=== PATIENT | male | born 1965 | race African-American/Black ===

== ENCOUNTER 2016-12-12 10:05 | Inpatient (IN) | payer MEDICARE, MEDICAID ==
[~2016-12-12] VITALS: Ht 175.3 cm; Wt 89.1 kg
[~2016-12-12 10:05] MED LIST: CLOP75 PO; FERR-89 PO; FLUP10 PO; LISI10TA PO; METO50 PO; PALI9TAB PO; QUET400T PO
[2016-12-15 15:41] VITALS: BP 97/65
[2016-12-15] MEDS ORDERED: ZOLPIDEM TARTRATE 10 MG TABLET PO PRN (15:45)
[2016-12-15] MEDS ORDERED: HALOPERIDOL 5 MG TABLET PO PRN (15:45)
[2016-12-15] MEDS ORDERED: LORazepam 2 MG TABLET PO PRN (15:45)
[2016-12-15] MEDS ORDERED: INFLUENZA VIRUS VACCINE QVS 2016-17 (3YR+)/PF 60 MCG/0.5 ML SYRINGE IM ONE (16:00)
[2016-12-15 16:08] VITALS: BP 153/78
[2016-12-15] MEDS ORDERED: ROSU10 PO (16:24)
[2016-12-15] MEDS ORDERED: LOSA50TA37 PO (16:24)
[2016-12-15] MEDS ORDERED: AMLO-512 PO (16:24)
[2016-12-15] MEDS ORDERED: MIRT30 PO (16:24)
[2016-12-15] MEDS ORDERED: DIVA500T35 PO ×2 (16:24)
[2016-12-15] MEDS ORDERED: FOLI1 PO (16:24)
[2016-12-15] MEDS ORDERED: CLON.2 PO (16:24)
[2016-12-15] MEDS ORDERED: METO50 PO (16:24)
[2016-12-15] MEDS ORDERED: ASPI-1061 PO (16:24)
[2016-12-15] MEDS ORDERED: PNEUMOCOCCAL VACCINE POLYVALENT 0.5 ML VIAL [PPSV23] IM ONE (16:30)
[2016-12-16 06:54] VITALS: BP 106/66
[2016-12-16] MEDS ORDERED: LOPERAMIDE HCL 2 MG CAPSULE PO PRN (08:15)
[2016-12-16] MEDS ORDERED: ALBUTEROL SULFATE HFA 90 MCG/PUFF 8 GM INHALER IH PRN (08:15)
[2016-12-16] MEDS ORDERED: BACITRACIN 28.4 GM OINTMENT TP PRN (08:15)
[2016-12-16] MEDS ORDERED: CloNIDine HCL 0.1 MG TABLET PO PRN (08:15)
[2016-12-16] MEDS ORDERED: BENZOCAINE/MENTHOL LOZENGE MM PRN (08:15)
[2016-12-16] MEDS ORDERED: ONDANSETRON HCL 4 MG TABLET PO PRN (08:15)
[2016-12-16] MEDS ORDERED: MAGNESIUM HYDROXIDE SUSPENSION 30 ML UDCUP PO PRN (08:15)
[2016-12-16] MEDS ORDERED: MAG HYDROX/AL HYDROX/SIMETH ES 30 ML SUSPENSION UDCUP PO PRN (08:15)
[2016-12-16] MEDS ORDERED: IBUPROFEN 600 MG TABLET PO PRN (08:15)
[2016-12-16] MEDS ORDERED: ACETAMINOPHEN 325 MG TABLET PO PRN (08:15)
[2016-12-16] MEDS ORDERED: PETROLATUM,WHITE 71 GM JELLY TP PRN (08:15)
[2016-12-16 08:34] LABS: BASOPHILS % (AUTO) 0.4 % (0.0-2.0); EOSINOPHILS % (AUTO) 1.2 % (1.0-6.0); HEMATOCRIT 34.6 % (41-53); HEMOGLOBIN 11.1 g/dL (13.5-17.5); LYMPHOCYTES # (AUTO) 4.1 K/uL (1.0-4.8); LYMPHOCYTES % (AUTO) 45.8 % (22.0-44.0); MEAN CORPUSCULAR HEMOGLOBIN 25.3 pg (26.0-34.0); MEAN CORPUSCULAR HGB CONC 32.1 G/dL (31.0-37.0); MEAN CORPUSCULAR VOLUME 79 fL (80-100); MONOCYTES # (AUTO) 0.8 K/uL (0.1-1.0); MONOCYTES % (AUTO) 8.8 % (2.0-9.0); NEUTROPHILS # (AUTO) 3.9 K/uL (1.8-7.7); NEUTROPHILS % (AUTO) 43.8 % (40.0-70.0); PLATELET COUNT (AUTO) 189 K/uL (150-450); RED BLOOD CELL COUNT(AUTO) 4.38 MIL/uL (4.50-5.90); RED CELL DISTRIBUTION WIDTH 15.1 % (11.5-14.5)
[2016-12-16 08:48] LABS: ALBUMIN 3.9 g/dL (3.4-5.0); BILIRUBIN,TOTAL 0.4 mg/dL (0.1-1.0); CALCIUM, TOTAL 9.1 mg/dL (8.8-10.5); CREATININE 4.67 mg/dL (0.60-1.30); POTASSIUM 4.7 mmol/L (3.5-5.1)
[2016-12-16 08:52] VITALS: BP 98/62
[2016-12-16] MEDS ORDERED: METOPROLOL TARTRATE 50 MG TABLET PO SCH ×2 (09:00)
[2016-12-16] MEDS ORDERED: FOLIC ACID 1 MG TABLET PO SCH (09:00)
[2016-12-16] MEDS ORDERED: CloNIDine HCL 0.2 MG TABLET PO SCH (09:00)
[2016-12-16] MEDS ORDERED: ASPIRIN 81 MG CHEWABLE TABLET PO SCH (09:00)
[2016-12-16] MEDS ORDERED: ROSUVASTATIN CALCIUM 10 MG TABLET PO SCH (09:00)
[2016-12-16] MEDS ORDERED: LOSARTAN POTASSIUM 50 MG TABLET PO SCH (09:00)
[2016-12-16] MEDS ORDERED: AmLODIPine BESYLATE 10 MG TABLET PO SCH (09:00)
[2016-12-16] MEDS: METOPROLOL TARTRATE 25 MG TABLET PO SCH ×2 (09:09→17:00)
== END 2016-12-16 18:00 | disposition short-term general hospital (02) | DRG 885 ==
LOC: EEVIPCON 12-15 15:41 → B3A 12-15 15:41
PROVIDERS: ADMIT Psychiatry & Neurology Psychiatry; ATTEND Psychiatry & Neurology Psychiatry
DX: F20.0 Paranoid schizophrenia (principal); N17.9 Acute kidney failure, unspecified; I12.9 Hypertensive chronic kidney disease with stage 1 through stage 4 chronic kidney disease, or unspecified chronic kidney disease; J44.9 Chronic obstructive pulmonary disease, unspecified; K21.9 Gastro-esophageal reflux disease without esophagitis; N18.9 Chronic kidney disease, unspecified; E78.5 Hyperlipidemia, unspecified; F17.210 Nicotine dependence, cigarettes, uncomplicated; Z71.6 Tobacco abuse counseling; Z79.51 Long term (current) use of inhaled steroids; Z79.899 Other long term (current) drug therapy; Z28.21 Immunization not carried out because of patient refusal

== ENCOUNTER 2016-12-16 10:31 | Inpatient (IN) | payer MEDICARE, OTHER ==
[~2016-12-16] VITALS: Ht 175.3 cm; Wt 88.4 kg
[~2016-12-16 10:31] MED LIST changes: +AMLO-512 PO; +ASPI-1061 PO; +CLON.2 PO; -CLOP75 PO; +DIVA500T35 PO; -FERR-89 PO; -FLUP10 PO; +FOLI1 PO; -LISI10TA PO; +LOSA50TA37 PO; +MIRT30 PO; -PALI9TAB PO; -QUET400T PO; +ROSU10 PO
[2016-12-16 11:39] LABS: BASOPHILS # (AUTO) 0.04 K/uL (0.00-0.20); BASOPHILS % (AUTO) 0.4 % (0.0-2.0); EOSINOPHILS # (AUTO) 0.09 K/uL (0.00-0.70); EOSINOPHILS % (AUTO) 0.97 % (1.0-6.0); HEMATOCRIT 34.4 % (41-53); HEMOGLOBIN 11.1 g/dL (13.5-17.5); LYMPHOCYTES # (AUTO) 3.6 K/uL (1.0-4.8); LYMPHOCYTES % (AUTO) 39.9 % (22.0-44.0); MEAN CORPUSCULAR HEMOGLOBIN 25.1 pg (26.0-34.0); MEAN CORPUSCULAR HGB CONC 32.3 G/dL (31.0-37.0); MEAN CORPUSCULAR VOLUME 78 fL (80-100); MONOCYTES # (AUTO) 0.8 K/uL (0.1-1.0); MONOCYTES % (AUTO) 9.3 % (2.0-9.0); NEUTROPHILS # (AUTO) 4.5 K/uL (1.8-7.7); NEUTROPHILS % (AUTO) 49.5 % (40.0-70.0); PLATELET COUNT (AUTO) 185 K/uL (150-450); RED BLOOD CELL COUNT(AUTO) 4.43 MIL/uL (4.50-5.90); RED CELL DISTRIBUTION WIDTH 15.3 % (11.5-14.5); WHITE BLOOD COUNT (AUTO) 9.1 K/uL (4.5-11.0)
[2016-12-16 11:49] LABS: CALCIUM, TOTAL 9.3 mg/dL (8.8-10.5); CREATININE 4.69 mg/dL (0.60-1.30); POTASSIUM 5.2 mmol/L (3.5-5.1)
[2016-12-16 11:57] LABS: ALBUMIN 3.9 g/dL (3.4-5.0); BILIRUBIN,TOTAL 0.3 mg/dL (0.1-1.0); TOTAL PROTEIN, SERUM 8.4 g/dL (6.4-8.2)
[2016-12-16] MEDS ORDERED: SODIUM POLYSTYRENE SULFONATE 15 GM/60 ML SUSPENSION BOTTLE PO ONE (13:15)
[2016-12-16] MEDS ORDERED: SODIUM CHLORIDE 0.9% 1,000 ML IV ONE (14:00)
[2016-12-16] MEDS ORDERED: 0.9% SODIUM CHLORIDE 10 ML SYRINGE IVP PRN (14:00)
[2016-12-16] MEDS ORDERED: ACETAMINOPHEN 325 MG TABLET PO PRN (14:00)
[2016-12-16 18:44] VITALS: BP 140/85
[2016-12-16 19:37] VITALS: BP 129/84
[2016-12-17 00:01] VITALS: BP 127/73
[2016-12-17 04:15] VITALS: BP 146/89
[2016-12-17 07:51] VITALS: BP 144/98
[2016-12-17 08:01] LABS: BASOPHILS % (AUTO) 0.7 % (0.0-2.0); EOSINOPHILS % (AUTO) 0.4 % (1.0-6.0); HEMATOCRIT 34.4 % (41-53); HEMOGLOBIN 10.8 g/dL (13.5-17.5); LYMPHOCYTES # (AUTO) 2.5 K/uL (1.0-4.8); LYMPHOCYTES % (AUTO) 27.3 % (22.0-44.0); MEAN CORPUSCULAR HGB CONC 31.2 G/dL (31.0-37.0); MEAN CORPUSCULAR VOLUME 80 fL (80-100); MONOCYTES # (AUTO) 0.7 K/uL (0.1-1.0); MONOCYTES % (AUTO) 8.2 % (2.0-9.0); NEUTROPHILS # (AUTO) 5.8 K/uL (1.8-7.7); NEUTROPHILS % (AUTO) 63.4 % (40.0-70.0); PLATELET COUNT (AUTO) 190 K/uL (150-450); RED CELL DISTRIBUTION WIDTH 15.4 % (11.5-14.5); WHITE BLOOD COUNT (AUTO) 9.1 K/uL (4.5-11.0)
[2016-12-17 08:15] LABS: BILIRUBIN,TOTAL 0.4 mg/dL (0.1-1.0); CALCIUM, TOTAL 9.7 mg/dL (8.8-10.5); CREATININE 3.27 mg/dL (0.60-1.30); POTASSIUM 4.2 mmol/L (3.5-5.1); TOTAL PROTEIN, SERUM 8.9 g/dL (6.4-8.2)
[2016-12-17] MEDS: ROSUVASTATIN CALCIUM 10 MG TABLET PO SCH (09:22)
[2016-12-17] MEDS: SODIUM CHLORIDE 0.9% 1,000 ML IV SCH ×2 (09:22→18:45)
[2016-12-17] MEDS: FOLIC ACID 1 MG TABLET PO SCH (09:22)
[2016-12-17] MEDS: ASPIRIN 81 MG EC TABLET PO SCH (09:22)
[2016-12-17] MEDS: NICOTINE 21 MG/24 HOUR PATCH TD SCH (12:30)
[2016-12-17] MEDS: DIVALPROEX SODIUM 500 MG DR TABLET PO SCH ×2 (12:54→20:04)
[2016-12-17] MEDS ORDERED: IPRATROPIUM BROMIDE 0.5 MG/2.5 ML NEB SOLUTION NEB PRN (13:30)
[2016-12-17] MEDS ORDERED: BISACODYL 10 MG RECTAL RECTAL SUPPOSITORY PR PRN (13:30)
[2016-12-17] MEDS ORDERED: ACETAMINOPHEN 325 MG TABLET PO PRN (13:30)
[2016-12-17] MEDS ORDERED: ZOLPIDEM TARTRATE 5 MG TABLET PO PRN (13:30)
[2016-12-17] MEDS ORDERED: MAGNESIUM HYDROXIDE SUSPENSION 30 ML UDCUP PO PRN (13:30)
[2016-12-17] MEDS ORDERED: ALBUTEROL SULFATE 2.5 MG/0.5 ML NEB SOLUTION NEB PRN (13:30)
[2016-12-17 19:08] VITALS: BP 136/74
[2016-12-17] MEDS: HEPARIN SODIUM,PORCINE 5,000 UNITS/ML VIAL SQ SCH (20:05)
[2016-12-17] MEDS ORDERED: MIRTAZAPINE 30 MG TABLET PO SCH (21:00)
[2016-12-17 23:33] VITALS: BP 123/95
[2016-12-18 04:29] VITALS: BP 151/97
[2016-12-18] MEDS: SODIUM CHLORIDE 0.9% 1,000 ML IV SCH ×2 (04:45→14:45)
[2016-12-18 06:20] LABS: BASOPHILS % (AUTO) 0.3 % (0.0-2.0); EOSINOPHILS % (AUTO) 0.9 % (1.0-6.0); HEMATOCRIT 31.2 % (41-53); HEMOGLOBIN 9.7 g/dL (13.5-17.5); LYMPHOCYTES # (AUTO) 4.3 K/uL (1.0-4.8); LYMPHOCYTES % (AUTO) 42.2 % (22.0-44.0); MEAN CORPUSCULAR HEMOGLOBIN 24.8 pg (26.0-34.0); MEAN CORPUSCULAR HGB CONC 31.1 G/dL (31.0-37.0); MEAN CORPUSCULAR VOLUME 80 fL (80-100); MONOCYTES # (AUTO) 0.8 K/uL (0.1-1.0); MONOCYTES % (AUTO) 8.4 % (2.0-9.0); NEUTROPHILS # (AUTO) 4.9 K/uL (1.8-7.7); NEUTROPHILS % (AUTO) 48.2 % (40.0-70.0); PLATELET COUNT (AUTO) 151 K/uL (150-450); RED BLOOD CELL COUNT(AUTO) 3.92 MIL/uL (4.50-5.90); RED CELL DISTRIBUTION WIDTH 14.9 % (11.5-14.5)
[2016-12-18 06:43] LABS: ALBUMIN 3.5 g/dL (3.4-5.0); BILIRUBIN,TOTAL 0.3 mg/dL (0.1-1.0); CALCIUM, TOTAL 9.2 mg/dL (8.8-10.5); CHOL/HDL RATIO 3.5 (4.2-7.3); CREATININE 2.77 mg/dL (0.60-1.30); MAGNESIUM 2.1 mg/dL (1.80-2.40); PHOSPHORUS 3.5 mg/dL (2.5-4.9); POTASSIUM 3.9 mmol/L (3.5-5.1); THYROID STIMULATING HORMONE 0.56 uIU/mL (0.36-3.74); TOTAL PROTEIN, SERUM 7.6 g/dL (6.4-8.2)
[2016-12-18 07:14] LABS: WHITE BLOOD COUNT (AUTO) 11.3 K/uL (4.5-11.0)
[2016-12-18] MEDS: ROSUVASTATIN CALCIUM 10 MG TABLET PO SCH (07:58)
[2016-12-18] MEDS: ASPIRIN 81 MG EC TABLET PO SCH (07:58)
[2016-12-18] MEDS: NICOTINE 21 MG/24 HOUR PATCH TD SCH (07:59)
[2016-12-18] MEDS: FOLIC ACID 1 MG TABLET PO SCH (07:59)
[2016-12-18] MEDS: HEPARIN SODIUM,PORCINE 5,000 UNITS/ML VIAL SQ SCH (07:59)
[2016-12-18] MEDS ORDERED: NICOTINE 21 MG/24 HOUR PATCH TD SCH (09:00)
[2016-12-18] MEDS: DIVALPROEX SODIUM 500 MG DR TABLET PO SCH (09:00)
[2016-12-18] MEDS ORDERED: DiphenhydrAMINE HCL 50 MG/ML VIAL IM ONE (15:30)
[2016-12-18] MEDS ORDERED: LORazepam 2 MG/ML VIAL IM ONE (15:30)
[2016-12-18] MEDS ORDERED: HALOPERIDOL LACTATE 5 MG/ML VIAL IM ONE (15:30)
[2016-12-18] MEDS ORDERED: DIVALPROEX SODIUM 500 MG DR TABLET PO SCH (21:00)
[2016-12-18] MEDS ORDERED: CloNIDine HCL 0.2 MG TABLET PO SCH (21:00)
[2016-12-18] MEDS ORDERED: METOPROLOL TARTRATE 50 MG TABLET PO SCH (21:00)
[2016-12-19] MEDS ORDERED: AmLODIPine BESYLATE 10 MG TABLET PO SCH (09:00)
[2016-12-19] MEDS ORDERED: LOSARTAN POTASSIUM 50 MG TABLET PO SCH (09:00)
[2016-12-19 14:16] LABS: HEPATITIS Bs ANTIGEN SCREEN P Negative (Negative); HEPATITIS C AB SCREEN <0.1 s/co ratio (0.0-0.9)
== END 2016-12-18 18:05 | DRG 683 ==
LOC: EMS 10:32 → 5N 17:09
PROVIDERS: ADMIT Internal Medicine; ATTEND Internal Medicine
DX: N17.9 Acute kidney failure, unspecified (principal); F20.0 Paranoid schizophrenia; F17.213 Nicotine dependence, cigarettes, with withdrawal; E87.5 Hyperkalemia; N12 Tubulo-interstitial nephritis, not specified as acute or chronic; I12.9 Hypertensive chronic kidney disease with stage 1 through stage 4 chronic kidney disease, or unspecified chronic kidney disease; N18.9 Chronic kidney disease, unspecified; D64.9 Anemia, unspecified; K21.9 Gastro-esophageal reflux disease without esophagitis; J44.9 Chronic obstructive pulmonary disease, unspecified; F39 Unspecified mood [affective] disorder; F31.9 Bipolar disorder, unspecified; Z79.82 Long term (current) use of aspirin; Z79.899 Other long term (current) drug therapy
CPT/HCPCS: 80074; 82306; 83735; 83970; 84100; 84443; 93005; 96360; 99285; J1200; J1630; J1644; J2060; J7030

== ENCOUNTER 2016-12-18 16:59 | Inpatient (IN) | payer MEDICARE, MEDICAID ==
[~2016-12-18] VITALS: Ht 172.7 cm; Wt 84.4 kg
[2016-12-18 18:58] VITALS: BP 136/85
[2016-12-18] MEDS ORDERED: INFLUENZA VIRUS VACCINE QVS 2016-17 (3YR+)/PF 60 MCG/0.5 ML SYRINGE IM ONE (19:00)
[2016-12-18] MEDS ORDERED: ZOLPIDEM TARTRATE 10 MG TABLET PO PRN (19:00)
[2016-12-18] MEDS ORDERED: PNEUMOCOCCAL VACCINE POLYVALENT 0.5 ML VIAL [PPSV23] IM ONE (19:00)
[2016-12-18] MEDS ORDERED: HALOPERIDOL 5 MG TABLET PO PRN (19:00)
[2016-12-18] MEDS: LORazepam 2 MG TABLET PO PRN (21:15)
[2016-12-18] MEDS: DIVALPROEX SODIUM 500 MG DR TABLET PO SCH (21:15)
[2016-12-19 06:49] VITALS: BP 103/71
[2016-12-19] MEDS ORDERED: IBUPROFEN 600 MG TABLET PO PRN (08:00)
[2016-12-19] MEDS ORDERED: CloNIDine HCL 0.1 MG TABLET PO PRN (08:00)
[2016-12-19] MEDS ORDERED: LOPERAMIDE HCL 2 MG CAPSULE PO PRN (08:00)
[2016-12-19] MEDS ORDERED: ALBUTEROL SULFATE HFA 90 MCG/PUFF 8 GM INHALER IH PRN (08:00)
[2016-12-19] MEDS ORDERED: MAGNESIUM HYDROXIDE SUSPENSION 30 ML UDCUP PO PRN (08:00)
[2016-12-19] MEDS ORDERED: PETROLATUM,WHITE 71 GM JELLY TP PRN (08:00)
[2016-12-19] MEDS ORDERED: BENZOCAINE/MENTHOL LOZENGE MM PRN (08:00)
[2016-12-19] MEDS ORDERED: MAG HYDROX/AL HYDROX/SIMETH ES 30 ML SUSPENSION UDCUP PO PRN (08:00)
[2016-12-19] MEDS ORDERED: BACITRACIN 28.4 GM OINTMENT TP PRN (08:00)
[2016-12-19] MEDS ORDERED: ACETAMINOPHEN 325 MG TABLET PO PRN (08:00)
[2016-12-19] MEDS ORDERED: ONDANSETRON HCL 4 MG TABLET PO PRN (08:00)
[2016-12-19] MEDS: CHOLECALCIFEROL (VIT D3) 1,000 UNITS TABLET PO SCH (08:08)
[2016-12-19] MEDS: DIVALPROEX SODIUM 500 MG DR TABLET PO SCH ×3 (08:09→21:14)
[2016-12-19] MEDS: RisperiDONE 3 MG TABLET PO SCH ×2 (08:11→16:48)
[2016-12-19 08:34] VITALS: BP 136/83
[2016-12-19 16:00] VITALS: BP 116/76
[2016-12-19] MEDS: SEVELAMER CARBONATE 800 MG TABLET PO SCH (16:48)
[2016-12-19 20:00] VITALS: BP 123/80
[2016-12-19] MEDS ORDERED: METOPROLOL TARTRATE 25 MG TABLET PO ONE (21:00)
[2016-12-19] MEDS: METOPROLOL TARTRATE 50 MG TABLET PO SCH (21:15)
[2016-12-19 21:51] VITALS: BP 112/64
[2016-12-20 05:38] VITALS: BP 125/95
[2016-12-20] MEDS: SEVELAMER CARBONATE 800 MG TABLET PO SCH ×2 (06:33→17:10)
[2016-12-20 08:07] VITALS: BP 104/68
[2016-12-20 08:23] LABS: BASOPHILS # (AUTO) 0.04 K/uL (0.00-0.20); BASOPHILS % (AUTO) 0.4 % (0.0-2.0); EOSINOPHILS # (AUTO) 0.11 K/uL (0.00-0.70); EOSINOPHILS % (AUTO) 1.23 % (1.0-6.0); HEMATOCRIT 31.4 % (41-53); HEMOGLOBIN 10.1 g/dL (13.5-17.5); LYMPHOCYTES # (AUTO) 3.7 K/uL (1.0-4.8); LYMPHOCYTES % (AUTO) 41.1 % (22.0-44.0); MEAN CORPUSCULAR HEMOGLOBIN 25.2 pg (26.0-34.0); MEAN CORPUSCULAR HGB CONC 32.2 G/dL (31.0-37.0); MEAN CORPUSCULAR VOLUME 78 fL (80-100); MONOCYTES # (AUTO) 0.6 K/uL (0.1-1.0); MONOCYTES % (AUTO) 6.1 % (2.0-9.0); NEUTROPHILS # (AUTO) 4.6 K/uL (1.8-7.7); NEUTROPHILS % (AUTO) 51.1 % (40.0-70.0); PLATELET COUNT (AUTO) 204 K/uL (150-450); RED BLOOD CELL COUNT(AUTO) 4.01 MIL/uL (4.50-5.90); RED CELL DISTRIBUTION WIDTH 15.9 % (11.5-14.5); WHITE BLOOD COUNT (AUTO) 9.1 K/uL (4.5-11.0)
[2016-12-20 08:52] LABS: ALBUMIN 3.5 g/dL (3.4-5.0); BILIRUBIN,TOTAL 0.3 mg/dL (0.1-1.0); CALCIUM, TOTAL 9.4 mg/dL (8.8-10.5); CREATININE 3.05 mg/dL (0.60-1.30); MAGNESIUM 2.1 mg/dL (1.80-2.40); PHOSPHORUS 3.9 mg/dL (2.5-4.9); POTASSIUM 4.6 mmol/L (3.5-5.1); TOTAL PROTEIN, SERUM 7.4 g/dL (6.4-8.2)
[2016-12-20] MEDS: METOPROLOL TARTRATE 50 MG TABLET PO SCH ×2 (09:48→17:11)
[2016-12-20] MEDS: RisperiDONE 3 MG TABLET PO SCH ×2 (09:48→17:11)
[2016-12-20] MEDS: DIVALPROEX SODIUM 500 MG DR TABLET PO SCH ×3 (09:48→20:52)
[2016-12-20] MEDS: VITAMIN B COMP/VIT C/FOLIC ACID CAPSULE PO SCH (09:49)
[2016-12-20] MEDS: LORazepam 2 MG TABLET PO PRN ×2 (09:49→17:11)
[2016-12-20] MEDS: CHOLECALCIFEROL (VIT D3) 1,000 UNITS TABLET PO SCH (09:49)
[2016-12-20 17:09] VITALS: BP 133/85
[2016-12-21] MEDS: SEVELAMER CARBONATE 800 MG TABLET PO SCH ×2 (06:43→16:14)
[2016-12-21 06:46] VITALS: BP 113/72
[2016-12-21 08:20] VITALS: BP 128/84
[2016-12-21] MEDS: CHOLECALCIFEROL (VIT D3) 1,000 UNITS TABLET PO SCH (10:02)
[2016-12-21] MEDS: METOPROLOL TARTRATE 50 MG TABLET PO SCH ×2 (10:02→16:14)
[2016-12-21] MEDS: DIVALPROEX SODIUM 500 MG DR TABLET PO SCH ×3 (10:02→21:07)
[2016-12-21] MEDS: VITAMIN B COMP/VIT C/FOLIC ACID CAPSULE PO SCH (10:02)
[2016-12-21] MEDS: RisperiDONE 3 MG TABLET PO SCH ×2 (10:02→16:14)
[2016-12-21] MEDS: LORazepam 2 MG TABLET PO PRN ×2 (10:02→16:14)
[2016-12-21 16:22] VITALS: BP 124/88
[2016-12-22 06:12] VITALS: BP 122/84
[2016-12-22] MEDS: SEVELAMER CARBONATE 800 MG TABLET PO SCH ×2 (06:37→16:15)
[2016-12-22 08:07] VITALS: BP 122/79
[2016-12-22] MEDS: CHOLECALCIFEROL (VIT D3) 1,000 UNITS TABLET PO SCH (09:07)
[2016-12-22] MEDS: METOPROLOL TARTRATE 50 MG TABLET PO SCH ×2 (09:07→16:15)
[2016-12-22] MEDS: RisperiDONE 3 MG TABLET PO SCH ×2 (09:07→16:15)
[2016-12-22] MEDS: VITAMIN B COMP/VIT C/FOLIC ACID CAPSULE PO SCH (09:07)
[2016-12-22] MEDS: DIVALPROEX SODIUM 500 MG DR TABLET PO SCH ×3 (09:07→20:17)
[2016-12-22] MEDS: LORazepam 2 MG TABLET PO PRN (16:15)
[2016-12-22 16:25] VITALS: BP 128/83
[2016-12-23 06:30] VITALS: BP 121/81
[2016-12-23] MEDS: SEVELAMER CARBONATE 800 MG TABLET PO SCH ×2 (06:42→16:11)
[2016-12-23 07:03] VITALS: BP 125/78
[2016-12-23 08:09] VITALS: BP 115/77
[2016-12-23] MEDS: DIVALPROEX SODIUM 500 MG DR TABLET PO SCH ×3 (08:25→20:18)
[2016-12-23] MEDS: VITAMIN B COMP/VIT C/FOLIC ACID CAPSULE PO SCH (08:26)
[2016-12-23] MEDS: CHOLECALCIFEROL (VIT D3) 1,000 UNITS TABLET PO SCH (08:26)
[2016-12-23] MEDS: METOPROLOL TARTRATE 50 MG TABLET PO SCH ×2 (08:26→16:12)
[2016-12-23] MEDS: RisperiDONE 3 MG TABLET PO SCH ×2 (08:29→16:11)
[2016-12-23 16:00] VITALS: BP 118/83
[2016-12-24 06:39] VITALS: BP 116/86
[2016-12-24] MEDS: SEVELAMER CARBONATE 800 MG TABLET PO SCH ×2 (07:20→17:07)
[2016-12-24] MEDS: VITAMIN B COMP/VIT C/FOLIC ACID CAPSULE PO SCH (08:20)
[2016-12-24] MEDS: DIVALPROEX SODIUM 500 MG DR TABLET PO SCH ×3 (08:20→20:36)
[2016-12-24] MEDS: RisperiDONE 3 MG TABLET PO SCH ×2 (08:20→17:07)
[2016-12-24] MEDS: CHOLECALCIFEROL (VIT D3) 1,000 UNITS TABLET PO SCH (08:20)
[2016-12-24] MEDS: METOPROLOL TARTRATE 50 MG TABLET PO SCH ×2 (08:20→17:07)
[2016-12-24 08:33] VITALS: BP 135/86
[2016-12-24 16:00] VITALS: BP 141/103
[2016-12-24 18:22] VITALS: BP 125/67
[2016-12-25 06:39] VITALS: BP 129/76
[2016-12-25] MEDS: SEVELAMER CARBONATE 800 MG TABLET PO SCH ×2 (06:40→16:27)
[2016-12-25] MEDS: CHOLECALCIFEROL (VIT D3) 1,000 UNITS TABLET PO SCH (08:18)
[2016-12-25] MEDS: VITAMIN B COMP/VIT C/FOLIC ACID CAPSULE PO SCH (08:18)
[2016-12-25] MEDS: METOPROLOL TARTRATE 50 MG TABLET PO SCH ×2 (08:18→16:27)
[2016-12-25] MEDS: RisperiDONE 3 MG TABLET PO SCH ×2 (08:18→16:27)
[2016-12-25] MEDS: DIVALPROEX SODIUM 500 MG DR TABLET PO SCH ×3 (08:19→20:16)
[2016-12-25 08:35] VITALS: BP 126/79
[2016-12-25 16:23] VITALS: BP 119/75
[2016-12-25] MEDS: LORazepam 2 MG TABLET PO PRN (16:27)
[2016-12-26 06:38] VITALS: BP 101/68
[2016-12-26] MEDS: SEVELAMER CARBONATE 800 MG TABLET PO SCH (06:49)
[2016-12-26] MEDS ORDERED: FOLI1CAP2 PO (07:45)
[2016-12-26] MEDS ORDERED: SEVEC800 PO (07:45)
[2016-12-26] MEDS ORDERED: ALBU8HFA IH (07:45)
[2016-12-26] MEDS ORDERED: RISP3 PO (07:45)
[2016-12-26] MEDS ORDERED: VITAD1000 PO (07:45)
[2016-12-26] MEDS: VITAMIN B COMP/VIT C/FOLIC ACID CAPSULE PO SCH (08:44)
[2016-12-26] MEDS: RisperiDONE 3 MG TABLET PO SCH (08:44)
[2016-12-26] MEDS: DIVALPROEX SODIUM 500 MG DR TABLET PO SCH (08:44)
[2016-12-26] MEDS: METOPROLOL TARTRATE 50 MG TABLET PO SCH (08:45)
[2016-12-26] MEDS: CHOLECALCIFEROL (VIT D3) 1,000 UNITS TABLET PO SCH (08:45)
== END 2016-12-26 13:25 | disposition home or self-care (01) | DRG 885 ==
LOC: B3A 18:54 → EDSTATUS 18:55
PROVIDERS: ADMIT Psychiatry & Neurology Psychiatry; ATTEND Psychiatry & Neurology Psychiatry
DX: F20.0 Paranoid schizophrenia (principal); N18.4 Chronic kidney disease, stage 4 (severe); N25.81 Secondary hyperparathyroidism of renal origin; F17.210 Nicotine dependence, cigarettes, uncomplicated; E78.5 Hyperlipidemia, unspecified; E55.9 Vitamin D deficiency, unspecified; D63.1 Anemia in chronic kidney disease; I12.9 Hypertensive chronic kidney disease with stage 1 through stage 4 chronic kidney disease, or unspecified chronic kidney disease; J44.9 Chronic obstructive pulmonary disease, unspecified; K21.9 Gastro-esophageal reflux disease without esophagitis; Z91.19 Patient's noncompliance with other medical treatment and regimen; Z79.82 Long term (current) use of aspirin; Z79.899 Other long term (current) drug therapy; Z71.6 Tobacco abuse counseling
CPT/HCPCS: 83735; 84100; 87081

== ENCOUNTER 2021-01-02 09:34 | Inpatient (IN) | payer MEDICARE, MEDICAID ==
[~2021-01-02] VITALS: Ht 175.3 cm; Wt 79.7 kg
[~2021-01-02 09:34] MED LIST changes: +ACET-2247 PO; -AMLO-512 PO; -ASPI-1061 PO; +CHOL100044 PO; -CLON.2 PO; +DIVA-112 PO; -DIVA500T35 PO; -FOLI1 PO; +FOLI1CAP16 PO; -LOSA50TA37 PO; +METO25 PO; -METO50 PO; -MIRT30 PO; +PANT-31 PO; +QUET200T PO; +RISP3TAB35 PO; -ROSU10 PO; +SERT-158 PO; +SEVE800T17 PO; +VITA-369 PO
[2021-01-02] MEDS ORDERED: HALOPERIDOL LACTATE 5 MG/ML VIAL ONE (09:56)
[2021-01-02] MEDS ORDERED: DiphenhydrAMINE HCL 50 MG/ML VIAL ONE (09:56)
[2021-01-02] MEDS ORDERED: LORazepam 2 MG/ML VIAL ONE (09:56)
[2021-01-02] MEDS ORDERED: DiphenhydrAMINE HCL 50 MG/ML VIAL IM ONE ×2 (10:00→19:45)
[2021-01-02] MEDS ORDERED: LORazepam 2 MG/ML VIAL IM ONE ×2 (10:00→19:45)
[2021-01-02] MEDS ORDERED: HALOPERIDOL LACTATE 5 MG/ML VIAL IM ONE (10:00)
[2021-01-02 10:43] LABS: COVID AG,FIA SOURCE NASAL SWAB
[2021-01-02 11:25] LABS: BASOPHILS % (AUTO) 0.6 % (0.0-2.0); HEMATOCRIT 23.2 % (41-53); HEMOGLOBIN 7.4 g/dL (13.5-17.5); LYMPHOCYTES # (AUTO) 1.7 K/uL (1.0-4.8); LYMPHOCYTES % (AUTO) 27.6 % (22.0-44.0); MEAN CORPUSCULAR HEMOGLOBIN 23.3 pg (26.0-34.0); MEAN CORPUSCULAR VOLUME 73 fL (80-100); MONOCYTES # (AUTO) 0.8 K/uL (0.1-1.0); MONOCYTES % (AUTO) 12.2 % (2.0-9.0); NEUTROPHILS # (AUTO) 3.6 K/uL (1.8-7.7); NEUTROPHILS % (AUTO) 57.6 % (40.0-70.0); PLATELET COUNT (AUTO) 144 K/uL (150-450); RED BLOOD CELL COUNT(AUTO) 3.18 MIL/uL (4.50-5.90); RED CELL DISTRIBUTION WIDTH 18.9 % (11.5-14.5)
[2021-01-02 11:38] LABS: ANION GAP 5 mmol/L (8-16); CALCIUM, TOTAL 8.8 mg/dL (8.8-10.5); CARBON DIOXIDE 26 mmol/L (22-29); CHLORIDE 109 mmol/L (98-107); CREATININE 2.89 mg/dL (0.60-1.30); GLOMERULAR FILTR. RATE CALC 28 mL/min (>60); GLUCOSE,RANDOM 87 mg/dL (70-110); POTASSIUM 4.7 mmol/L (3.5-5.1); SODIUM SERUM 140 mmol/L (136-145); UREA NITROGEN, BLOOD 38 mg/dL (7-18)
[2021-01-02 11:44] LABS: ALANINE AMINOTRANSFERASE 12 U/L (12-78); ALBUMIN 2.8 g/dL (3.4-5.0); ALKALINE PHOSPHATASE 56 U/L (46-116); ASPARTATE AMINOTRANSFERASE 13 U/L (15-37); TOTAL PROTEIN, SERUM 6.9 g/dL (6.4-8.2); VALPROIC ACID 73 mcg/mL (50-100)
[2021-01-02 12:04] LABS: BILIRUBIN,TOTAL 0.2 mg/dL (0.1-1.0)
[2021-01-02 15:22] LABS: AMPHET/METH SCREEN,URINE NEGATIVE (NEGATIVE); BARBITURATE SCREEN, URINE NEGATIVE (NEGATIVE); BENZODIAZEPINES SCREEN,URINE NEGATIVE (NEGATIVE); CANNABINOID SCREEN,URINE NEGATIVE (NEGATIVE); COCAINE SCREEN,URINE NEGATIVE (NEGATIVE); METHADONE SCREEN, URINE NEGATIVE (NEGATIVE); OPIATE SCREEN,URINE NEGATIVE (NEGATIVE)
[2021-01-02 15:25] LABS: PHENCYCLIDINE SCREEN,URINE NEGATIVE (NEGATIVE)
[2021-01-02] MEDS: HALOPERIDOL LACTATE 5 MG/ML VIAL IM ONE ×2 (19:39→19:48)
[2021-01-02] MEDS ORDERED: OLANZapine 5 MG TABLET PO SCH (21:00)
[2021-01-02] MEDS ORDERED: DIVALPROEX SODIUM 250 MG DR TABLET PO SCH (21:00)
[2021-01-03] MEDS ORDERED: IBUPROFEN 400 MG TABLET PO PRN (08:00)
[2021-01-03] MEDS ORDERED: DOCUSATE SODIUM 100 MG CAPSULE PO PRN (08:00)
[2021-01-03] MEDS ORDERED: NICOTINE 14 MG/24 HOUR PATCH TD PRN (08:00)
[2021-01-03] MEDS ORDERED: MAGNESIUM HYDROXIDE SUSPENSION 30 ML UDCUP PO PRN (08:00)
[2021-01-03] MEDS ORDERED: ONDANSETRON HCL 4 MG TABLET PO PRN (08:00)
[2021-01-03] MEDS ORDERED: GuaiFENesin/D-METHORPHAN [SUGAR-FREE] 200-20MG/10 ML SYRUP UDCUP PO PRN (08:00)
[2021-01-03] MEDS ORDERED: CloNIDine HCL 0.1 MG TABLET PO PRN (08:00)
[2021-01-03] MEDS ORDERED: MAG HYDROX/AL HYDROX/SIMETH ES 30 ML SUSPENSION UDCUP PO PRN (08:00)
[2021-01-03] MEDS ORDERED: ALBUTEROL SULFATE HFA 90 MCG/PUFF 8 GM INHALER IH PRN (08:00)
[2021-01-03] MEDS ORDERED: LOPERAMIDE HCL 2 MG CAPSULE PO PRN (08:00)
[2021-01-03] MEDS ORDERED: PETROLATUM,WHITE 28 GM JELLY TP PRN (08:00)
[2021-01-03] MEDS ORDERED: ACETAMINOPHEN 325 MG TABLET PO PRN (08:00)
[2021-01-03] MEDS ORDERED: VITAMIN B COMPLEX/FOLIC ACID 1 TABLET PO SCH (09:00)
[2021-01-03] MEDS: DIVALPROEX SODIUM 500 MG DR TABLET PO SCH ×5 (09:00→20:39)
[2021-01-03] MEDS: METOPROLOL TARTRATE 25 MG TABLET PO SCH ×2 (09:55→17:50)
[2021-01-03] MEDS: VITAMIN B COMP/VIT C/FOLIC ACID CAPSULE PO SCH (09:55)
[2021-01-03] MEDS: CHOLECALCIFEROL (VIT D3) 1,000 UNITS [25 MCG] TABLET PO SCH (09:57)
[2021-01-03] MEDS: PANTOPRAZOLE SODIUM 40 MG DR TABLET PO SCH (09:57)
[2021-01-03 10:28] VITALS: BP 149/101
[2021-01-03] MEDS: LORazepam 2 MG TABLET PO PRN ×2 (10:33→19:10)
[2021-01-03] MEDS: HALOPERIDOL 5 MG TABLET PO PRN ×2 (10:33→19:10)
[2021-01-03] MEDS: SERTRALINE HCL 50 MG TABLET PO SCH (11:07)
[2021-01-03] MEDS: QUEtiapine FUMARATE 200 MG TABLET PO SCH (11:08)
[2021-01-03] MEDS: RisperiDONE 3 MG TABLET PO SCH ×2 (11:08→17:50)
[2021-01-03 17:09] VITALS: BP 121/78
[2021-01-03] MEDS: SEVELAMER CARBONATE 800 MG TABLET PO SCH (17:50)
[2021-01-03] MEDS: ZOLPIDEM TARTRATE 10 MG TABLET PO PRN (20:39)
[2021-01-04] MEDS: LORazepam 2 MG TABLET PO PRN ×3 (02:16→15:17)
[2021-01-04 02:58] VITALS: BP 118/78
[2021-01-04] MEDS: SEVELAMER CARBONATE 800 MG TABLET PO SCH ×2 (07:18→16:34)
[2021-01-04 08:00] VITALS: BP 165/98
[2021-01-04] MEDS: VITAMIN B COMP/VIT C/FOLIC ACID CAPSULE PO SCH (08:12)
[2021-01-04] MEDS: METOPROLOL TARTRATE 25 MG TABLET PO SCH ×2 (08:13→16:34)
[2021-01-04] MEDS: PANTOPRAZOLE SODIUM 40 MG DR TABLET PO SCH (08:15)
[2021-01-04] MEDS: DIVALPROEX SODIUM 500 MG DR TABLET PO SCH ×3 (08:15→20:52)
[2021-01-04] MEDS: SERTRALINE HCL 50 MG TABLET PO SCH (08:15)
[2021-01-04] MEDS: QUEtiapine FUMARATE 200 MG TABLET PO SCH (08:15)
[2021-01-04] MEDS: CHOLECALCIFEROL (VIT D3) 1,000 UNITS [25 MCG] TABLET PO SCH (08:15)
[2021-01-04] MEDS: RisperiDONE 3 MG TABLET PO SCH ×2 (08:15→16:34)
[2021-01-04] MEDS: HALOPERIDOL 5 MG TABLET PO PRN (15:17)
[2021-01-04] MEDS: MUPIROCIN CALCIUM 2% 22 GM OINTMENT NASAL SCH (16:34)
[2021-01-04 16:49] VITALS: BP 155/94
[2021-01-05] MEDS: SEVELAMER CARBONATE 800 MG TABLET PO SCH ×2 (06:57→16:30)
[2021-01-05 08:16] VITALS: BP 139/83
[2021-01-05] MEDS: PANTOPRAZOLE SODIUM 40 MG DR TABLET PO SCH (08:30)
[2021-01-05] MEDS: QUEtiapine FUMARATE 200 MG TABLET PO SCH ×2 (08:30→20:25)
[2021-01-05] MEDS: VITAMIN B COMP/VIT C/FOLIC ACID CAPSULE PO SCH (08:30)
[2021-01-05] MEDS: MUPIROCIN CALCIUM 2% 22 GM OINTMENT NASAL SCH ×2 (08:30→16:33)
[2021-01-05] MEDS: DIVALPROEX SODIUM 500 MG DR TABLET PO SCH ×3 (08:30→20:25)
[2021-01-05] MEDS: METOPROLOL TARTRATE 25 MG TABLET PO SCH ×2 (08:30→16:31)
[2021-01-05] MEDS: CHOLECALCIFEROL (VIT D3) 1,000 UNITS [25 MCG] TABLET PO SCH (08:30)
[2021-01-05] MEDS: SERTRALINE HCL 50 MG TABLET PO SCH (08:32)
[2021-01-05] MEDS: RisperiDONE 3 MG TABLET PO SCH ×2 (08:42→16:30)
[2021-01-05] MEDS: LORazepam 2 MG TABLET PO PRN (09:42)
[2021-01-05 10:40] LABS: APPEARANCE,URINE CLEAR (CLEAR); BILIRUBIN,URINE NEGATIVE (NEGATIVE); GLUCOSE, URINE (UA) NEGATIVE (NEGATIVE); KETONES,URINE NEGATIVE (NEGATIVE); LEUKOCYTE ESTERASE ,URINE LARGE (NEGATIVE); NITRATE,URINE NEGATIVE (NEGATIVE); OCCULT BLOOD,URINE NEGATIVE (NEGATIVE); PH,URINE 6.5 (5.0-8.0); PROTEIN,URINE NEGATIVE (NEGATIVE); UROBILINOGEN,URINE 0.2 mg/dL (<=1.0)
[2021-01-05 10:55] LABS: RBC,URINE None Seen /HPF (0-2); WBC,URINE 26-50 /HPF (0-5)
[2021-01-05 10:56] LABS: BACTERIA,URINE None Seen /HPF (None Seen); SQUAMOUS EPITHELIAL CELL,UR Few /LPF (None Seen)
[2021-01-05 16:23] VITALS: BP 138/72
[2021-01-05] MEDS: CIPROFLOXACIN HCL 500 MG TABLET PO SCH (16:30)
[2021-01-06] MEDS: SEVELAMER CARBONATE 800 MG TABLET PO SCH ×2 (06:52→16:36)
[2021-01-06 08:07] VITALS: BP 144/89
[2021-01-06] MEDS: PANTOPRAZOLE SODIUM 40 MG DR TABLET PO SCH (09:54)
[2021-01-06] MEDS: SERTRALINE HCL 50 MG TABLET PO SCH (09:54)
[2021-01-06] MEDS: RisperiDONE 3 MG TABLET PO SCH ×2 (09:54→16:36)
[2021-01-06] MEDS: CHOLECALCIFEROL (VIT D3) 1,000 UNITS [25 MCG] TABLET PO SCH (09:54)
[2021-01-06] MEDS: QUEtiapine FUMARATE 200 MG TABLET PO SCH ×2 (09:54→20:28)
[2021-01-06] MEDS: LORazepam 2 MG TABLET PO PRN (09:55)
[2021-01-06] MEDS: DIVALPROEX SODIUM 500 MG DR TABLET PO SCH ×3 (09:55→20:28)
[2021-01-06] MEDS: VITAMIN B COMP/VIT C/FOLIC ACID CAPSULE PO SCH (09:55)
[2021-01-06] MEDS: CIPROFLOXACIN HCL 500 MG TABLET PO SCH ×2 (09:55→16:36)
[2021-01-06] MEDS: METOPROLOL TARTRATE 25 MG TABLET PO SCH ×2 (09:58→16:39)
[2021-01-06] MEDS: MUPIROCIN CALCIUM 2% 22 GM OINTMENT NASAL SCH ×2 (10:08→17:18)
[2021-01-06 16:41] VITALS: BP 150/84
[2021-01-07 02:02] VITALS: BP 139/82
[2021-01-07] MEDS: ZOLPIDEM TARTRATE 10 MG TABLET PO PRN (02:06)
[2021-01-07] MEDS: SEVELAMER CARBONATE 800 MG TABLET PO SCH ×2 (06:57→15:59)
[2021-01-07 08:02] VITALS: BP 134/76
[2021-01-07] MEDS: RisperiDONE 3 MG TABLET PO SCH ×2 (08:48→16:01)
[2021-01-07] MEDS: CIPROFLOXACIN HCL 500 MG TABLET PO SCH ×2 (08:48→15:59)
[2021-01-07] MEDS: PANTOPRAZOLE SODIUM 40 MG DR TABLET PO SCH (08:48)
[2021-01-07] MEDS: DIVALPROEX SODIUM 500 MG DR TABLET PO SCH ×3 (08:48→21:11)
[2021-01-07] MEDS: SERTRALINE HCL 50 MG TABLET PO SCH (08:48)
[2021-01-07] MEDS: QUEtiapine FUMARATE 200 MG TABLET PO SCH ×2 (08:48→21:12)
[2021-01-07] MEDS: CHOLECALCIFEROL (VIT D3) 1,000 UNITS [25 MCG] TABLET PO SCH (08:48)
[2021-01-07] MEDS: VITAMIN B COMP/VIT C/FOLIC ACID CAPSULE PO SCH (08:48)
[2021-01-07] MEDS: METOPROLOL TARTRATE 25 MG TABLET PO SCH ×2 (08:48→15:59)
[2021-01-07] MEDS: MUPIROCIN CALCIUM 2% 22 GM OINTMENT NASAL SCH ×2 (08:49→16:00)
[2021-01-07] MEDS: LORazepam 2 MG TABLET PO PRN ×2 (11:43→16:02)
[2021-01-07 16:00] VITALS: BP 140/79
[2021-01-08] MEDS: SEVELAMER CARBONATE 800 MG TABLET PO SCH ×2 (06:49→16:44)
[2021-01-08 08:00] VITALS: BP 137/78
[2021-01-08] MEDS: RisperiDONE 3 MG TABLET PO SCH ×2 (08:48→17:37)
[2021-01-08] MEDS: QUEtiapine FUMARATE 200 MG TABLET PO SCH ×2 (08:48→20:56)
[2021-01-08] MEDS: LORazepam 2 MG TABLET PO PRN (08:49)
[2021-01-08] MEDS: CHOLECALCIFEROL (VIT D3) 1,000 UNITS [25 MCG] TABLET PO SCH (08:49)
[2021-01-08] MEDS: MUPIROCIN CALCIUM 2% 22 GM OINTMENT NASAL SCH ×2 (08:49→17:32)
[2021-01-08] MEDS: DIVALPROEX SODIUM 500 MG DR TABLET PO SCH ×3 (08:49→20:56)
[2021-01-08] MEDS: CIPROFLOXACIN HCL 500 MG TABLET PO SCH ×2 (08:51→16:44)
[2021-01-08] MEDS: SERTRALINE HCL 50 MG TABLET PO SCH (08:51)
[2021-01-08] MEDS: METOPROLOL TARTRATE 25 MG TABLET PO SCH ×2 (08:51→16:44)
[2021-01-08] MEDS: VITAMIN B COMP/VIT C/FOLIC ACID CAPSULE PO SCH (08:51)
[2021-01-08] MEDS: PANTOPRAZOLE SODIUM 40 MG DR TABLET PO SCH (08:51)
[2021-01-08 16:16] VITALS: BP 111/75
[2021-01-09] MEDS: SEVELAMER CARBONATE 800 MG TABLET PO SCH ×2 (06:52→17:23)
[2021-01-09] MEDS: PANTOPRAZOLE SODIUM 40 MG DR TABLET PO SCH (07:28)
[2021-01-09] MEDS: VITAMIN B COMP/VIT C/FOLIC ACID CAPSULE PO SCH (07:28)
[2021-01-09] MEDS: QUEtiapine FUMARATE 200 MG TABLET PO SCH ×2 (07:28→20:44)
[2021-01-09] MEDS: METOPROLOL TARTRATE 25 MG TABLET PO SCH ×2 (07:28→17:23)
[2021-01-09] MEDS: HALOPERIDOL 5 MG TABLET PO PRN (07:28)
[2021-01-09] MEDS: MUPIROCIN CALCIUM 2% 22 GM OINTMENT NASAL SCH ×2 (07:28→17:23)
[2021-01-09] MEDS: CIPROFLOXACIN HCL 500 MG TABLET PO SCH ×2 (07:28→17:23)
[2021-01-09] MEDS: DIVALPROEX SODIUM 500 MG DR TABLET PO SCH ×3 (07:28→20:44)
[2021-01-09] MEDS: RisperiDONE 3 MG TABLET PO SCH ×2 (07:28→17:23)
[2021-01-09] MEDS: LORazepam 2 MG TABLET PO PRN (07:28)
[2021-01-09] MEDS: SERTRALINE HCL 50 MG TABLET PO SCH (07:29)
[2021-01-09] MEDS: CHOLECALCIFEROL (VIT D3) 1,000 UNITS [25 MCG] TABLET PO SCH (07:29)
[2021-01-09 08:46] VITALS: BP 116/78
[2021-01-09 14:44] LABS: COVID AG,FIA SOURCE NASOPHARYNGEAL
[2021-01-09 18:48] VITALS: BP 101/73
[2021-01-10] MEDS: SEVELAMER CARBONATE 800 MG TABLET PO SCH ×2 (06:36→16:36)
[2021-01-10 08:04] VITALS: BP 117/91
[2021-01-10] MEDS: QUEtiapine FUMARATE 200 MG TABLET PO SCH ×2 (08:26→21:02)
[2021-01-10] MEDS: PANTOPRAZOLE SODIUM 40 MG DR TABLET PO SCH (08:26)
[2021-01-10] MEDS: DIVALPROEX SODIUM 500 MG DR TABLET PO SCH ×3 (08:26→21:01)
[2021-01-10] MEDS: RisperiDONE 3 MG TABLET PO SCH ×2 (08:26→16:37)
[2021-01-10] MEDS: CHOLECALCIFEROL (VIT D3) 1,000 UNITS [25 MCG] TABLET PO SCH (08:26)
[2021-01-10] MEDS: SERTRALINE HCL 50 MG TABLET PO SCH (08:26)
[2021-01-10] MEDS: VITAMIN B COMP/VIT C/FOLIC ACID CAPSULE PO SCH (08:27)
[2021-01-10] MEDS: CIPROFLOXACIN HCL 500 MG TABLET PO SCH (08:27)
[2021-01-10] MEDS: METOPROLOL TARTRATE 25 MG TABLET PO SCH ×2 (08:27→15:50)
[2021-01-10 16:11] VITALS: BP 102/70
[2021-01-10] MEDS: FERROUS SULFATE 325 MG EC TABLET PO SCH (16:36)
[2021-01-11] MEDS: FERROUS SULFATE 325 MG EC TABLET PO SCH ×3 (07:04→16:47)
[2021-01-11] MEDS: SEVELAMER CARBONATE 800 MG TABLET PO SCH ×2 (07:04→16:47)
[2021-01-11] MEDS: QUEtiapine FUMARATE 200 MG TABLET PO SCH ×2 (08:00→20:40)
[2021-01-11] MEDS: SERTRALINE HCL 50 MG TABLET PO SCH (08:00)
[2021-01-11] MEDS: RisperiDONE 3 MG TABLET PO SCH ×2 (08:00→16:47)
[2021-01-11] MEDS: CHOLECALCIFEROL (VIT D3) 1,000 UNITS [25 MCG] TABLET PO SCH (08:00)
[2021-01-11] MEDS: PANTOPRAZOLE SODIUM 40 MG DR TABLET PO SCH (08:00)
[2021-01-11] MEDS: VITAMIN B COMP/VIT C/FOLIC ACID CAPSULE PO SCH (08:01)
[2021-01-11] MEDS: DIVALPROEX SODIUM 500 MG DR TABLET PO SCH ×3 (08:01→20:40)
[2021-01-11] MEDS: METOPROLOL TARTRATE 25 MG TABLET PO SCH ×2 (08:01→16:47)
[2021-01-11] MEDS: LORazepam 2 MG TABLET PO PRN (13:52)
[2021-01-11] MEDS: HALOPERIDOL 5 MG TABLET PO PRN (13:52)
[2021-01-11 17:47] VITALS: BP 107/71
[2021-01-12] MEDS: FERROUS SULFATE 325 MG EC TABLET PO SCH ×3 (07:08→17:25)
[2021-01-12] MEDS: SEVELAMER CARBONATE 800 MG TABLET PO SCH ×2 (07:08→17:25)
[2021-01-12 08:00] VITALS: BP 119/81
[2021-01-12] MEDS: VITAMIN B COMP/VIT C/FOLIC ACID CAPSULE PO SCH (09:56)
[2021-01-12] MEDS: METOPROLOL TARTRATE 25 MG TABLET PO SCH ×2 (09:56→16:57)
[2021-01-12] MEDS: CHOLECALCIFEROL (VIT D3) 1,000 UNITS [25 MCG] TABLET PO SCH (09:58)
[2021-01-12] MEDS: QUEtiapine FUMARATE 200 MG TABLET PO SCH ×2 (09:58→20:26)
[2021-01-12] MEDS: SERTRALINE HCL 50 MG TABLET PO SCH (09:58)
[2021-01-12] MEDS: RisperiDONE 3 MG TABLET PO SCH ×2 (09:58→16:57)
[2021-01-12] MEDS: PANTOPRAZOLE SODIUM 40 MG DR TABLET PO SCH (09:58)
[2021-01-12] MEDS: DIVALPROEX SODIUM 500 MG DR TABLET PO SCH ×3 (09:58→20:26)
[2021-01-12 16:26] VITALS: BP 123/90
[2021-01-13] MEDS: SEVELAMER CARBONATE 800 MG TABLET PO SCH ×2 (07:01→16:39)
[2021-01-13] MEDS: FERROUS SULFATE 325 MG EC TABLET PO SCH ×3 (07:02→16:39)
[2021-01-13 08:00] VITALS: BP 117/83
[2021-01-13] MEDS: PANTOPRAZOLE SODIUM 40 MG DR TABLET PO SCH (08:19)
[2021-01-13] MEDS: RisperiDONE 3 MG TABLET PO SCH ×2 (08:20→16:39)
[2021-01-13] MEDS: QUEtiapine FUMARATE 200 MG TABLET PO SCH ×2 (08:20→21:00)
[2021-01-13] MEDS: CHOLECALCIFEROL (VIT D3) 1,000 UNITS [25 MCG] TABLET PO SCH (08:20)
[2021-01-13] MEDS: SERTRALINE HCL 50 MG TABLET PO SCH (08:20)
[2021-01-13] MEDS: METOPROLOL TARTRATE 25 MG TABLET PO SCH ×2 (08:21→16:39)
[2021-01-13] MEDS: VITAMIN B COMP/VIT C/FOLIC ACID CAPSULE PO SCH (08:21)
[2021-01-13] MEDS: DIVALPROEX SODIUM 500 MG DR TABLET PO SCH ×3 (08:22→21:00)
[2021-01-13 16:25] VITALS: BP 121/76
[2021-01-14] MEDS: SEVELAMER CARBONATE 800 MG TABLET PO SCH ×2 (06:35→17:24)
[2021-01-14] MEDS: FERROUS SULFATE 325 MG EC TABLET PO SCH ×3 (06:36→17:24)
[2021-01-14 08:00] VITALS: BP 132/88
[2021-01-14] MEDS: VITAMIN B COMP/VIT C/FOLIC ACID CAPSULE PO SCH (08:55)
[2021-01-14] MEDS: DIVALPROEX SODIUM 500 MG DR TABLET PO SCH ×3 (08:55→20:28)
[2021-01-14] MEDS: METOPROLOL TARTRATE 25 MG TABLET PO SCH ×2 (08:55→17:24)
[2021-01-14] MEDS: RisperiDONE 3 MG TABLET PO SCH ×2 (08:56→17:24)
[2021-01-14] MEDS: CHOLECALCIFEROL (VIT D3) 1,000 UNITS [25 MCG] TABLET PO SCH (08:56)
[2021-01-14] MEDS: SERTRALINE HCL 50 MG TABLET PO SCH (08:56)
[2021-01-14] MEDS: PANTOPRAZOLE SODIUM 40 MG DR TABLET PO SCH (08:56)
[2021-01-14] MEDS: QUEtiapine FUMARATE 200 MG TABLET PO SCH ×2 (08:56→20:27)
[2021-01-14 16:25] VITALS: BP 124/82
[2021-01-15] MEDS: FERROUS SULFATE 325 MG EC TABLET PO SCH ×3 (06:40→16:09)
[2021-01-15] MEDS: SEVELAMER CARBONATE 800 MG TABLET PO SCH ×2 (06:40→08:27)
[2021-01-15 08:05] VITALS: BP 119/87
[2021-01-15] MEDS: RisperiDONE 3 MG TABLET PO SCH ×2 (08:27→16:09)
[2021-01-15] MEDS: QUEtiapine FUMARATE 200 MG TABLET PO SCH ×2 (08:27→20:08)
[2021-01-15] MEDS: DIVALPROEX SODIUM 500 MG DR TABLET PO SCH ×3 (08:28→20:09)
[2021-01-15] MEDS: VITAMIN B COMP/VIT C/FOLIC ACID CAPSULE PO SCH (08:28)
[2021-01-15] MEDS: METOPROLOL TARTRATE 25 MG TABLET PO SCH ×2 (08:28→16:13)
[2021-01-15] MEDS: SERTRALINE HCL 50 MG TABLET PO SCH (08:28)
[2021-01-15] MEDS: CHOLECALCIFEROL (VIT D3) 1,000 UNITS [25 MCG] TABLET PO SCH (08:29)
[2021-01-15] MEDS: PANTOPRAZOLE SODIUM 40 MG DR TABLET PO SCH (08:30)
[2021-01-15 16:12] VITALS: BP 112/83
[2021-01-16] MEDS: SEVELAMER CARBONATE 800 MG TABLET PO SCH ×2 (06:44→16:24)
[2021-01-16] MEDS: FERROUS SULFATE 325 MG EC TABLET PO SCH ×3 (06:44→16:24)
[2021-01-16] MEDS: QUEtiapine FUMARATE 200 MG TABLET PO SCH ×2 (07:57→20:29)
[2021-01-16] MEDS: CHOLECALCIFEROL (VIT D3) 1,000 UNITS [25 MCG] TABLET PO SCH (07:57)
[2021-01-16] MEDS: PANTOPRAZOLE SODIUM 40 MG DR TABLET PO SCH (07:57)
[2021-01-16] MEDS: DIVALPROEX SODIUM 500 MG DR TABLET PO SCH ×3 (07:57→20:29)
[2021-01-16] MEDS: RisperiDONE 3 MG TABLET PO SCH ×2 (07:57→16:24)
[2021-01-16] MEDS: VITAMIN B COMP/VIT C/FOLIC ACID CAPSULE PO SCH (07:58)
[2021-01-16] MEDS: METOPROLOL TARTRATE 25 MG TABLET PO SCH ×2 (07:58→16:24)
[2021-01-16] MEDS: SERTRALINE HCL 50 MG TABLET PO SCH (07:58)
[2021-01-16 08:00] VITALS: BP 129/90
[2021-01-16 16:06] LABS: COVID AG,FIA SOURCE NASAL SWAB
[2021-01-16 16:12] VITALS: BP 107/81
[2021-01-17] MEDS: FERROUS SULFATE 325 MG EC TABLET PO SCH ×2 (07:07→13:12)
[2021-01-17] MEDS: SEVELAMER CARBONATE 800 MG TABLET PO SCH (07:07)
[2021-01-17 08:15] VITALS: BP 126/91
[2021-01-17] MEDS: VITAMIN B COMP/VIT C/FOLIC ACID CAPSULE PO SCH (10:59)
[2021-01-17] MEDS: METOPROLOL TARTRATE 25 MG TABLET PO SCH (10:59)
[2021-01-17] MEDS ORDERED: QUET200T PO ×2 (11:02)
[2021-01-17] MEDS ORDERED: RISP3TAB35 PO (11:03)
[2021-01-17] MEDS ORDERED: SERT-162 PO (11:04)
[2021-01-17] MEDS: PANTOPRAZOLE SODIUM 40 MG DR TABLET PO SCH (11:06)
[2021-01-17] MEDS: CHOLECALCIFEROL (VIT D3) 1,000 UNITS [25 MCG] TABLET PO SCH (11:06)
[2021-01-17] MEDS: RisperiDONE 3 MG TABLET PO SCH (11:06)
[2021-01-17] MEDS: DIVALPROEX SODIUM 500 MG DR TABLET PO SCH (11:06)
[2021-01-17] MEDS: QUEtiapine FUMARATE 200 MG TABLET PO SCH (11:06)
[2021-01-17] MEDS: SERTRALINE HCL 50 MG TABLET PO SCH (11:06)
[2021-01-17] MEDS ORDERED: B CO1CAP6 PO (11:12)
[2021-01-17] MEDS ORDERED: FERR-89 PO (11:17)
[2021-01-17] MEDS ORDERED: METO25 PO (11:18)
== END 2021-01-17 15:15 | disposition home or self-care (01) | DRG 885 ==
LOC: EMS 09:34 → 3EC 13:49
PROVIDERS: ADMIT Psychiatry & Neurology Child & Adolescent Psychiatry; ATTEND Psychiatry & Neurology Child & Adolescent Psychiatry
DX: F25.1 Schizoaffective disorder, depressive type (principal); N18.9 Chronic kidney disease, unspecified; N39.0 Urinary tract infection, site not specified; R45.851 Suicidal ideations; I12.9 Hypertensive chronic kidney disease with stage 1 through stage 4 chronic kidney disease, or unspecified chronic kidney disease; F22 Delusional disorders; F17.200 Nicotine dependence, unspecified, uncomplicated; E78.5 Hyperlipidemia, unspecified; D63.8 Anemia in other chronic diseases classified elsewhere; F41.9 Anxiety disorder, unspecified; Z20.822 Contact with and (suspected) exposure to COVID-19; Z59.0 Homelessness
CPT/HCPCS: 80053; 80164; 81001; 85025; 87081; 87426; 99291; G0480; J1200; J1630; J2060

== ENCOUNTER 2022-06-02 09:25 | Inpatient (IN) | payer MEDICARE, MEDICAID ==
[~2022-06-02] VITALS: Ht 175.3 cm; Wt 78.0 kg
[~2022-06-02 09:25] MED LIST changes: -ACET-2247 PO; -CHOL100044 PO; +CHOL25TA4 PO; +FERR325T27 PO; -FOLI1CAP16 PO; -SERT-158 PO; +SERT-162 PO
[2022-06-02] MEDS ORDERED: LORazepam 2 MG TABLET PO PRN (10:45)
[2022-06-02] MEDS ORDERED: HALOPERIDOL 5 MG TABLET PO PRN (10:45)
[2022-06-02] MEDS ORDERED: ZOLPIDEM TARTRATE 10 MG TABLET PO PRN (10:45)
[2022-06-02 14:51] VITALS: BP 122/81
[2022-06-02] MEDS ORDERED: PNEUMOCOCCAL VACCINE POLYVALENT 0.5 ML VIAL [PPSV23] IM. ONE (15:00)
[2022-06-02] MEDS ORDERED: NICOTINE 14 MG/24 HOUR PATCH TD PRN (16:45)
[2022-06-02 17:19] VITALS: BP 135/85
[2022-06-02] MEDS: METOPROLOL TARTRATE 25 MG TABLET PO SCH (17:19)
[2022-06-02 20:10] VITALS: BP 131/78
[2022-06-03 07:12] LABS: BASOPHILS % (AUTO) 0.4 % (0.0-2.0); EOSINOPHILS % (AUTO) 1.1 % (1.0-6.0); HEMATOCRIT 31.8 % (41-53); HEMOGLOBIN 10.2 g/dL (13.5-17.5); LYMPHOCYTES # (AUTO) 2.5 K/uL (1.0-4.8); LYMPHOCYTES % (AUTO) 30.4 % (22.0-44.0); MEAN CORPUSCULAR HEMOGLOBIN 23.6 pg (26.0-34.0); MEAN CORPUSCULAR VOLUME 74 fL (80-100); MONOCYTES # (AUTO) 0.5 K/uL (0.1-1.0); MONOCYTES % (AUTO) 6.4 % (2.0-9.0); NEUTROPHILS # (AUTO) 5.2 K/uL (1.8-7.7); NEUTROPHILS % (AUTO) 61.7 % (40.0-70.0); PLATELET COUNT (AUTO) 227 K/uL (150-450); RED BLOOD CELL COUNT(AUTO) 4.31 MIL/uL (4.50-5.90); RED CELL DISTRIBUTION WIDTH 13.9 % (11.5-14.5)
[2022-06-03 07:30] LABS: HEMOGLOBIN A1C 5.9 % (3.8-5.6)
[2022-06-03] MEDS ORDERED: GuaiFENesin/D-METHORPHAN [SUGAR-FREE] 200-20MG/10 ML SYRUP UDCUP PO PRN (07:30)
[2022-06-03] MEDS ORDERED: LOPERAMIDE HCL 2 MG CAPSULE PO PRN (07:30)
[2022-06-03] MEDS ORDERED: MAG HYDROX/AL HYDROX/SIMETH ES 30 ML SUSPENSION UDCUP PO PRN (07:30)
[2022-06-03] MEDS ORDERED: ALBUTEROL SULFATE HFA 90 MCG/PUFF 8 GM INHALER IH PRN (07:30)
[2022-06-03] MEDS ORDERED: NICOTINE 14 MG/24 HOUR PATCH TD PRN (07:30)
[2022-06-03] MEDS ORDERED: PETROLATUM,WHITE 28 GM JELLY TP PRN (07:30)
[2022-06-03] MEDS ORDERED: IBUPROFEN 400 MG TABLET PO PRN (07:30)
[2022-06-03] MEDS ORDERED: ACETAMINOPHEN 325 MG TABLET PO PRN (07:30)
[2022-06-03] MEDS ORDERED: MAGNESIUM HYDROXIDE SUSPENSION 30 ML UDCUP PO PRN (07:30)
[2022-06-03] MEDS ORDERED: DOCUSATE SODIUM 100 MG CAPSULE PO PRN (07:30)
[2022-06-03] MEDS ORDERED: CloNIDine HCL 0.1 MG TABLET PO PRN (07:30)
[2022-06-03] MEDS ORDERED: ONDANSETRON HCL 4 MG TABLET PO PRN (07:30)
[2022-06-03 07:44] LABS: ALANINE AMINOTRANSFERASE 22 U/L (12-78); ALBUMIN 3.4 g/dL (3.4-5.0); ALKALINE PHOSPHATASE 67 U/L (46-116); ANION GAP 11 mmol/L (8-16); ASPARTATE AMINOTRANSFERASE 31 U/L (15-37); BILIRUBIN,TOTAL 0.5 mg/dL (0.1-1.0); CALCIUM, TOTAL 9.6 mg/dL (8.8-10.5); CARBON DIOXIDE 27 mmol/L (22-29); CHLORIDE 104 mmol/L (98-107); CHOL/HDL RATIO 3.8 (4.2-7.3); CHOLESTEROL 174 mg/dL (131-200); CREATININE 2.95 mg/dL (0.60-1.30); FREE T4 (FREE THYROXINE) 1.07 ng/dL (0.76-1.46); GLUCOSE,RANDOM 88 mg/dL (70-110); HDL CHOLESTEROL 46 mg/dL (40-60); LDL CHOL (CALC.) 108 mg/dL (0-130); POTASSIUM 4.7 mmol/L (3.5-5.1); SODIUM SERUM 142 mmol/L (136-145); THYROID STIMULATING HORMONE 0.61 uIU/mL (0.36-3.74); TOTAL PROTEIN, SERUM 7.3 g/dL (6.4-8.2); TRIGLYCERIDES 98 mg/dL (15-150); UREA NITROGEN, BLOOD 31 mg/dL (7-18)
[2022-06-03 07:47] LABS: GLOMERULAR FILTR. RATE CALC 27 mL/min (>60)
[2022-06-03 08:03] VITALS: BP 132/81
[2022-06-03] MEDS: CHOLECALCIFEROL (VIT D3) 1,000 UNITS [25 MCG] TABLET PO SCH (08:57)
[2022-06-03] MEDS: METOPROLOL TARTRATE 25 MG TABLET PO SCH ×2 (08:57→16:36)
[2022-06-03] MEDS: PANTOPRAZOLE SODIUM 40 MG DR TABLET PO SCH (08:57)
[2022-06-03] MEDS ORDERED: METOPROLOL TARTRATE 25 MG TABLET PO SCH (09:00)
[2022-06-03] MEDS: FERROUS SULFATE 325 MG EC TABLET PO SCH ×2 (11:36→16:42)
[2022-06-03] MEDS: SERTRALINE HCL 100 MG TABLET PO SCH (12:29)
[2022-06-03] MEDS: QUEtiapine FUMARATE 200 MG TABLET PO SCH ×2 (12:29→20:31)
[2022-06-03] MEDS: DIVALPROEX SODIUM 500 MG DR TABLET PO SCH ×3 (12:29→20:32)
[2022-06-03] MEDS: VITAMIN B COMPLEX/FOLIC ACID 1 TABLET PO SCH (16:20)
[2022-06-03 16:34] VITALS: BP 111/81
[2022-06-03] MEDS: RisperiDONE 3 MG TABLET PO SCH (16:36)
[2022-06-03] MEDS: SEVELAMER CARBONATE 800 MG TABLET PO SCH (16:37)
[2022-06-03 20:24] VITALS: BP 137/97
[2022-06-04] MEDS: SEVELAMER CARBONATE 800 MG TABLET PO SCH ×2 (06:53→16:25)
[2022-06-04] MEDS: FERROUS SULFATE 325 MG EC TABLET PO SCH ×3 (06:53→17:10)
[2022-06-04 08:45] VITALS: BP 116/78
[2022-06-04] MEDS: VITAMIN B COMPLEX/FOLIC ACID 1 TABLET PO SCH (09:13)
[2022-06-04] MEDS: METOPROLOL TARTRATE 25 MG TABLET PO SCH ×2 (09:13→16:25)
[2022-06-04] MEDS: PANTOPRAZOLE SODIUM 40 MG DR TABLET PO SCH (09:13)
[2022-06-04] MEDS: SERTRALINE HCL 100 MG TABLET PO SCH (09:13)
[2022-06-04] MEDS: RisperiDONE 3 MG TABLET PO SCH ×2 (09:13→16:25)
[2022-06-04] MEDS: CHOLECALCIFEROL (VIT D3) 1,000 UNITS [25 MCG] TABLET PO SCH (09:13)
[2022-06-04] MEDS: DIVALPROEX SODIUM 500 MG DR TABLET PO SCH ×3 (09:13→20:03)
[2022-06-04] MEDS: QUEtiapine FUMARATE 200 MG TABLET PO SCH ×2 (09:13→20:02)
[2022-06-04 21:11] VITALS: BP 120/90
[2022-06-05] MEDS: FERROUS SULFATE 325 MG EC TABLET PO SCH ×2 (06:31→11:28)
[2022-06-05] MEDS: SEVELAMER CARBONATE 800 MG TABLET PO SCH (06:31)
[2022-06-05 07:26] LABS: CREATININE 2.39 mg/dL (0.60-1.30); POTASSIUM 4.6 mmol/L (3.5-5.1)
[2022-06-05] MEDS: QUEtiapine FUMARATE 200 MG TABLET PO SCH (08:18)
[2022-06-05] MEDS: RisperiDONE 3 MG TABLET PO SCH (08:18)
[2022-06-05] MEDS: CHOLECALCIFEROL (VIT D3) 1,000 UNITS [25 MCG] TABLET PO SCH (08:18)
[2022-06-05] MEDS: METOPROLOL TARTRATE 25 MG TABLET PO SCH (08:18)
[2022-06-05] MEDS: VITAMIN B COMPLEX/FOLIC ACID 1 TABLET PO SCH (08:18)
[2022-06-05] MEDS: SERTRALINE HCL 100 MG TABLET PO SCH (08:18)
[2022-06-05] MEDS: PANTOPRAZOLE SODIUM 40 MG DR TABLET PO SCH (08:18)
[2022-06-05] MEDS: DIVALPROEX SODIUM 500 MG DR TABLET PO SCH (08:18)
[2022-06-05 08:56] VITALS: BP 144/98
[2022-06-05] MEDS ORDERED: QUET200T30 PO (11:56)
[2022-06-05] MEDS ORDERED: RISP3TAB63 PO (11:56)
[2022-06-05] MEDS ORDERED: SERT-440 PO (11:56)
[2022-06-05] MEDS ORDERED: DIVA-112 PO (11:56)
== END 2022-06-05 15:00 | disposition home or self-care (01) | DRG 885 ==
LOC: B2X 13:24
PROVIDERS: ADMIT Psychiatry & Neurology Child & Adolescent Psychiatry; ATTEND Psychiatry & Neurology Child & Adolescent Psychiatry
DX: F25.0 Schizoaffective disorder, bipolar type (principal); N18.9 Chronic kidney disease, unspecified; I12.9 Hypertensive chronic kidney disease with stage 1 through stage 4 chronic kidney disease, or unspecified chronic kidney disease; D63.8 Anemia in other chronic diseases classified elsewhere; E55.9 Vitamin D deficiency, unspecified; E78.5 Hyperlipidemia, unspecified; F10.10 Alcohol abuse, uncomplicated; J44.9 Chronic obstructive pulmonary disease, unspecified; K21.9 Gastro-esophageal reflux disease without esophagitis; F41.9 Anxiety disorder, unspecified; Z79.899 Other long term (current) drug therapy
CPT/HCPCS: 80048; 80053; 80061; 83036; 84436; 84439; 84443; 85025; 86592; 87081; G0480

== ENCOUNTER 2025-01-20 15:32 | Inpatient (IN) | payer MEDICARE, OTHER ==
[~2025-01-20] VITALS: Ht 180.3 cm; Wt 71.6 kg
[~2025-01-20 15:32] MED LIST changes: -CHOL25TA4 PO; -FERR325T27 PO; -METO25 PO; -PANT-31 PO; +QUET200T30 PO; +RISP3TAB77 PO; +SERT-440 PO; -SEVE800T17 PO; +SEVE800T38 PO; -VITA-369 PO
[2025-01-20] MEDS ORDERED: HALOPERIDOL LACTATE 5 MG/ML VIAL ONE (16:40)
[2025-01-20] MEDS ORDERED: DiphenhydrAMINE HCL 50 MG/ML VIAL ONE (16:40)
[2025-01-20] MEDS ORDERED: LORazepam 2 MG/ML VIAL ONE (16:40)
[2025-01-20] MEDS: DiphenhydrAMINE HCL 50 MG/ML VIAL IM ONE ×2 (16:52)
[2025-01-20] MEDS: HALOPERIDOL LACTATE 5 MG/ML VIAL IM ONE ×2 (16:52→16:53)
[2025-01-20] MEDS: LORazepam 2 MG/ML VIAL IM ONE ×2 (16:52)
[2025-01-20] MEDS ORDERED: HALO100A4 IM (17:02)
[2025-01-20] MEDS ORDERED: PALI3TAB14 PO (17:02)
[2025-01-20] MEDS ORDERED: QUET300T2 PO (17:02)
[2025-01-20] MEDS ORDERED: DOCU-412 PO (17:02)
[2025-01-20] MEDS ORDERED: HYDR25TA84 PO (17:02)
[2025-01-20] MEDS ORDERED: METO25 PO (17:02)
[2025-01-20] MEDS ORDERED: DIVA-111 PO (17:02)
[2025-01-20] MEDS ORDERED: SERT-439 PO (17:02)
[2025-01-20] MEDS ORDERED: HALO10TA21 PO (17:02)
[2025-01-20] MEDS ORDERED: SENN-374 PO (17:02)
[2025-01-20] MEDS ORDERED: PANT40TA54 PO (17:02)
[2025-01-20] MEDS ORDERED: AMLO5TAB66 PO (17:02)
[2025-01-20 18:00] LABS: APPEARANCE,URINE CLEAR (CLEAR); BILIRUBIN,URINE NEGATIVE (NEGATIVE); COLOR,URINE LIGHT YELLOW (YELLOW); GLUCOSE, URINE (UA) NEGATIVE (NEGATIVE); KETONES,URINE NEGATIVE (NEGATIVE); LEUKOCYTE ESTERASE ,URINE TRACE (NEGATIVE); NITRATE,URINE NEGATIVE (NEGATIVE); OCCULT BLOOD,URINE NEGATIVE (NEGATIVE); PROTEIN,URINE 30-70 mg/dL (NEGATIVE); SPECIFIC GRAVITIY, URINE 1.011 (1.003-1.030); UROBILINOGEN,URINE <=1.0 mg/dL (<=1.0)
[2025-01-20 18:02] LABS: AMPHET/METH SCREEN,URINE NEGATIVE (NEGATIVE); BARBITURATE SCREEN, URINE NEGATIVE (NEGATIVE); BENZODIAZEPINES SCREEN,URINE NEGATIVE (NEGATIVE); CANNABINOID SCREEN,URINE NEGATIVE (NEGATIVE); COCAINE SCREEN,URINE NEGATIVE (NEGATIVE); METHADONE SCREEN, URINE NEGATIVE (NEGATIVE); OPIATE SCREEN,URINE NEGATIVE (NEGATIVE); PHENCYCLIDINE SCREEN,URINE NEGATIVE (NEGATIVE)
[2025-01-20 18:03] LABS: ALCOHOL, URINE DRUG SCREEN NEGATIVE (NEGATIVE)
[2025-01-20 18:06] LABS: BACTERIA,URINE Rare /HPF (None Seen); RBC,URINE 0-2 /HPF (0-2); SQUAMOUS EPITHELIAL CELL,UR Rare /LPF (None Seen)
[2025-01-20 18:12] LABS: COVID AG,FIA SOURCE NASAL SWAB
[2025-01-20 18:19] LABS: MONOCYTES # (AUTO) 0.5 K/uL (0.1-1.0); MONOCYTES % (AUTO) 6.9 % (2.0-9.0); RED CELL DISTRIBUTION WIDTH 17.3 % (11.5-14.5)
[2025-01-20 18:24] LABS: ANION GAP 7 mmol/L (8-16); CALCIUM, TOTAL 9.5 mg/dL (8.8-10.5); CARBON DIOXIDE 29 mmol/L (22-29); CHLORIDE 105 mmol/L (98-107); CREATININE 4.52 mg/dL (0.60-1.30); GLOMERULAR FILTR. RATE CALC 16 mL/min (>60); GLUCOSE,RANDOM 127 mg/dL (70-110); POTASSIUM 4.8 mmol/L (3.5-5.1); SODIUM SERUM 141 mmol/L (136-145); UREA NITROGEN, BLOOD 54 mg/dL (7-18)
[2025-01-20 18:36] LABS: ALCOHOL, BLOOD (SERUM) < 3 mg/dL (0-10)
[2025-01-20 18:37] LABS: BASOPHILS % (AUTO) 0.4 % (0.0-2.0); EOSINOPHILS % (AUTO) 0.5 % (1.0-6.0); HEMATOCRIT 26.4 % (41-53); HEMOGLOBIN 8.3 g/dL (13.5-17.5); LYMPHOCYTES # (AUTO) 1.3 K/uL (1.0-4.8); LYMPHOCYTES % (AUTO) 17.8 % (22.0-44.0); MEAN CORPUSCULAR HEMOGLOBIN 22.6 pg (26.0-34.0); MEAN CORPUSCULAR HGB CONC 31.5 G/dL (31.0-37.0); MEAN CORPUSCULAR VOLUME 72 fL (80-100); NEUTROPHILS # (AUTO) 5.5 K/uL (1.8-7.7); NEUTROPHILS % (AUTO) 74.4 % (40.0-70.0); PLATELET COUNT (AUTO) 263 K/uL (150-450); RED BLOOD CELL COUNT(AUTO) 3.67 MIL/uL (4.50-5.90); WHITE BLOOD COUNT (AUTO) 7.3 K/uL (4.5-11.0)
[2025-01-20 18:51] LABS: RBC MORPHOLOGY COMMENT ABNORMAL RBC MORPH
[2025-01-20] MEDS ORDERED: SODIUM CHLORIDE 0.9% 1,000 ML ONE (18:56)
[2025-01-20] MEDS: SODIUM CHLORIDE 0.9% 1,000 ML IV ONE ×2 (19:06→21:50)
[2025-01-20 19:08] LABS: SARS-COV2 (COVID) ANTIGEN,FIA Negative (Negative)
[2025-01-20 19:13] LABS: ALBUMIN 3.7 g/dL (3.4-5.0); BILIRUBIN,DIRECT 0.1 mg/dL (0.00-0.20); BILIRUBIN,TOTAL 0.4 mg/dL (0.1-1.0); TOTAL PROTEIN, SERUM 8.2 g/dL (6.4-8.2)
[2025-01-20] MEDS ORDERED: ACETAMINOPHEN 325 MG TABLET PO PRN (21:00)
[2025-01-20] MEDS ORDERED: ZOLPIDEM TARTRATE 5 MG TABLET PO PRN (21:00)
[2025-01-20] MEDS ORDERED: HYDROCODONE/ACETAMINOPHEN 5-325 MG TABLET PO PRN (21:00)
[2025-01-20] MEDS ORDERED: MORPHINE SULFATE 2 MG/ML SYRINGE IVP PRN (21:00)
[2025-01-20] MEDS: HydrALAZINE HCL 25 MG TABLET PO SCH (21:00)
[2025-01-20] MEDS ORDERED: MAGNESIUM HYDROXIDE SUSPENSION 30 ML UDCUP PO PRN (21:00)
[2025-01-20] MEDS: AmLODIPine BESYLATE 5 MG TABLET PO SCH (21:00)
[2025-01-20] MEDS ORDERED: ONDANSETRON HCL 4 MG/2 ML VIAL IVP PRN (21:00)
[2025-01-20] MEDS ORDERED: BISACODYL 10 MG RECTAL RECTAL SUPPOSITORY PR PRN (21:00)
[2025-01-20] MEDS: METOPROLOL TARTRATE 25 MG TABLET PO SCH (21:00)
[2025-01-20] MEDS: DIVALPROEX SODIUM 250 MG DR TABLET PO SCH (21:35)
[2025-01-20] MEDS: DOCUSATE SODIUM 100 MG CAPSULE PO SCH (21:35)
[2025-01-20 23:30] VITALS: BP 149/76; PULSE 65; RESP 18; TEMP 97.9; O2SAT 100
[2025-01-21] MEDS: HEPARIN SODIUM,PORCINE 5,000 UNITS/ML VIAL SQ SCH
[2025-01-21 04:59] VITALS: BP 158/86; PULSE 59; RESP 18; TEMP 97.5; O2SAT 100
[2025-01-21 07:51] VITALS: BP 159/84; PULSE 60; RESP 18; TEMP 97.4; O2SAT 100
[2025-01-21] MEDS: SEVELAMER CARBONATE 800 MG TABLET PO SCH (08:00)
[2025-01-21] MEDS: PANTOPRAZOLE SODIUM 40 MG DR TABLET PO SCH (09:00)
[2025-01-21] MEDS: SERTRALINE HCL 50 MG TABLET PO SCH (09:00)
[2025-01-21] MEDS ORDERED: HydrALAZINE HCL 50 MG TABLET PO SCH (16:00)
[2025-01-22] MEDS ORDERED: EPOETIN ALFA 10,000 UNITS/ML VIAL SQ SCH (09:00)
== END 2025-01-21 13:45 | disposition left against medical advice (07) | DRG 682 ==
LOC: EMS 15:32 → EDH 20:55 → 5S 23:30
PROVIDERS: ADMIT Internal Medicine; ATTEND Internal Medicine
DX: N17.9 Acute kidney failure, unspecified (principal); G93.41 Metabolic encephalopathy; M62.82 Rhabdomyolysis; F25.0 Schizoaffective disorder, bipolar type; D63.8 Anemia in other chronic diseases classified elsewhere; Z91.158 Patient's noncompliance with renal dialysis for other reason; I12.9 Hypertensive chronic kidney disease with stage 1 through stage 4 chronic kidney disease, or unspecified chronic kidney disease; Z20.822 Contact with and (suspected) exposure to COVID-19; N18.9 Chronic kidney disease, unspecified; K21.9 Gastro-esophageal reflux disease without esophagitis; Z78.1 Physical restraint status; Z79.899 Other long term (current) drug therapy; Z87.891 Personal history of nicotine dependence; Z53.29 Procedure and treatment not carried out because of patient's decision for other reasons
CPT/HCPCS: 80048; 80076; 80307; 81001; 82550; 85025; 87081; 96360; 96361; 96372; 99291; G0480; J1200; J1630; J1644; J2060; J7030; 36415-L1; 36415-TC

== ENCOUNTER 2025-02-21 02:21 | Emergency (ER) | payer MEDICARE, OTHER ==
[~2025-02-21] VITALS: Ht 175.3 cm; Wt 76.0 kg
[~2025-02-21 02:21] MED LIST changes: +AMLO5TAB66 PO; +DIVA-111 PO; -DIVA-112 PO; +DOCU-412 PO; +HALO100A4 IM; +HALO10TA21 PO; +HYDR25TA84 PO; +METO25 PO; +PALI3TAB14 PO; +PANT40TA54 PO; -QUET200T PO; -QUET200T30 PO; +QUET300T2 PO; -RISP3TAB35 PO; +SENN-374 PO; -SERT-162 PO; +SERT-439 PO; -SERT-440 PO
[2025-02-21 02:23] VITALS: BP 136/73; PULSE 81; RESP 16; TEMP 97.9; O2SAT 100
== END 2025-02-21 04:51 | disposition admitted as inpatient to this hospital (09) ==
LOC: EMS 02:21
DX: F25.9 Schizoaffective disorder, unspecified (principal); F31.9 Bipolar disorder, unspecified; F17.210 Nicotine dependence, cigarettes, uncomplicated; K21.9 Gastro-esophageal reflux disease without esophagitis; I10 Essential (primary) hypertension; Z79.899 Other long term (current) drug therapy
CPT/HCPCS: 99285; Z7502

== ENCOUNTER 2025-03-18 09:43 | Emergency (ER) | payer MEDICARE, OTHER ==
[~2025-03-18] VITALS: Ht 175.3 cm; Wt 69.7 kg
[~2025-03-18 09:43] MED LIST changes: -DIVA-111 PO; +DIVA-112 PO; -DOCU-412 PO; -HALO100A4 IM; +HALO100V36 IM; -HALO10TA21 PO; -PALI3TAB14 PO; +QUET200T PO; -QUET300T2 PO; -SEVE800T38 PO; +SEVE800T39 PO; +SODI5POW3 PO
[2025-03-18 10:46] VITALS: BP 144/100; PULSE 71; RESP 16; TEMP 98.2; O2SAT 99
[2025-03-18 11:06] LABS: COVID AG,FIA SOURCE NASAL SWAB
[2025-03-18 11:34] LABS: SARS-COV2 (COVID) ANTIGEN,FIA Negative (Negative)
[2025-03-18 12:29] LABS: ALCOHOL, URINE DRUG SCREEN NEGATIVE (NEGATIVE); AMPHET/METH SCREEN,URINE NEGATIVE (NEGATIVE); BARBITURATE SCREEN, URINE NEGATIVE (NEGATIVE); BENZODIAZEPINES SCREEN,URINE NEGATIVE (NEGATIVE); CANNABINOID SCREEN,URINE NEGATIVE (NEGATIVE); COCAINE SCREEN,URINE NEGATIVE (NEGATIVE); METHADONE SCREEN, URINE NEGATIVE (NEGATIVE); OPIATE SCREEN,URINE NEGATIVE (NEGATIVE); PHENCYCLIDINE SCREEN,URINE NEGATIVE (NEGATIVE)
[2025-03-18 12:37] LABS: BASOPHILS % (AUTO) 0.5 % (0.0-2.0); EOSINOPHILS % (AUTO) 1.3 % (1.0-6.0); HEMOGLOBIN 7.7 g/dL (13.5-17.5); LYMPHOCYTES # (AUTO) 1.4 K/uL (1.0-4.8); MEAN CORPUSCULAR HEMOGLOBIN 22.7 pg (26.0-34.0); MEAN CORPUSCULAR HGB CONC 32.1 G/dL (31.0-37.0); MEAN CORPUSCULAR VOLUME 71 fL (80-100); MONOCYTES # (AUTO) 0.6 K/uL (0.1-1.0); MONOCYTES % (AUTO) 6.8 % (2.0-9.0); NEUTROPHILS # (AUTO) 7.3 K/uL (1.8-7.7); NEUTROPHILS % (AUTO) 76.4 % (40.0-70.0); PLATELET COUNT (AUTO) 364 K/uL (150-450); RED BLOOD CELL COUNT(AUTO) 3.38 MIL/uL (4.50-5.90); RED CELL DISTRIBUTION WIDTH 16.9 % (11.5-14.5); WHITE BLOOD COUNT (AUTO) 9.5 K/uL (4.5-11.0)
[2025-03-18 12:44] LABS: CALCIUM, TOTAL 9.2 mg/dL (8.8-10.5); CREATININE 3.6 mg/dL (0.60-1.30); POTASSIUM 4.8 mmol/L (3.5-5.1)
[2025-03-18 12:54] LABS: RBC MORPHOLOGY COMMENT ABNORMAL RBC MORPH
== END 2025-03-18 14:53 ==
LOC: EMS 10:37
DX: R45.1 Restlessness and agitation (principal); F31.9 Bipolar disorder, unspecified; I10 Essential (primary) hypertension; N28.9 Disorder of kidney and ureter, unspecified; F20.9 Schizophrenia, unspecified; K21.9 Gastro-esophageal reflux disease without esophagitis; F17.210 Nicotine dependence, cigarettes, uncomplicated; Z79.899 Other long term (current) drug therapy; Z20.822 Contact with and (suspected) exposure to COVID-19
CPT/HCPCS: 99283; 87426; 80048; 85025; 36415; 80307; G0480

== ENCOUNTER 2025-06-25 11:37 | Inpatient (IN) | payer MEDICARE, OTHER ==
[~2025-06-25] VITALS: Ht 175.3 cm; Wt 85.9 kg
[2025-06-25 13:15] LABS: COVID AG,FIA SOURCE NASAL SWAB
[2025-06-25] MEDS: LORazepam 2 MG/ML VIAL IM ONE (13:29)
[2025-06-25 13:58] LABS: SARS-COV2 (COVID) ANTIGEN,FIA Negative (Negative)
[2025-06-25] MEDS ORDERED: ZOLPIDEM TARTRATE 10 MG TABLET PO PRN (14:15)
[2025-06-25 15:07] LABS: PLATELET COUNT (AUTO) 240 K/uL (150-450); RED BLOOD CELL COUNT(AUTO) 4.98 MIL/uL (4.50-5.90); RED CELL DISTRIBUTION WIDTH 20.7 % (11.5-14.5); WHITE BLOOD COUNT (AUTO) 11.5 K/uL (4.5-11.0)
[2025-06-25 15:18] LABS: CALCIUM, TOTAL 9.3 mg/dL (8.8-10.5); CREATININE 4.92 mg/dL (0.60-1.30); GLOMERULAR FILTR. RATE CALC 15.0 mL/min (>60); GLUCOSE,RANDOM 107.0 mg/dL (70-110); SODIUM SERUM 141.0 mmol/L (136-145); UREA NITROGEN, BLOOD 65.0 mg/dL (7-18)
[2025-06-25 16:14] LABS: RBC MORPHOLOGY COMMENT ABNORMAL RBC MORPH
[2025-06-25] MEDS ORDERED: ZOLPIDEM TARTRATE 5 MG TABLET PO PRN (16:45)
[2025-06-25] MEDS ORDERED: ONDANSETRON HCL 4 MG/2 ML VIAL IVP PRN (16:45)
[2025-06-25] MEDS ORDERED: ACETAMINOPHEN 325 MG TABLET PO PRN (16:45)
[2025-06-25] MEDS ORDERED: BISACODYL 10 MG RECTAL RECTAL SUPPOSITORY PR PRN (16:45)
[2025-06-25 18:08] LABS: ALCOHOL, URINE DRUG SCREEN NEGATIVE (NEGATIVE); AMPHET/METH SCREEN,URINE NEGATIVE (NEGATIVE); BARBITURATE SCREEN, URINE NEGATIVE (NEGATIVE); CANNABINOID SCREEN,URINE NEGATIVE (NEGATIVE); COCAINE SCREEN,URINE NEGATIVE (NEGATIVE); METHADONE SCREEN, URINE NEGATIVE (NEGATIVE)
[2025-06-25 18:29] LABS: APPEARANCE,URINE CLEAR (CLEAR); GLUCOSE, URINE (UA) NEGATIVE (NEGATIVE); LEUKOCYTE ESTERASE ,URINE NEGATIVE (NEGATIVE); NITRATE,URINE NEGATIVE (NEGATIVE); OCCULT BLOOD,URINE SMALL (NEGATIVE); PH,URINE DRUG SCREEN 5.5 (5.0-8.0); SPECIFIC GRAVITIY, URINE 1.010 (1.003-1.030)
[2025-06-25] MEDS: DOCUSATE SODIUM 100 MG CAPSULE PO SCH (20:50)
[2025-06-26 01:30] VITALS: BP 163/103; PULSE 88; RESP 20; TEMP 97.7; O2SAT 100
[2025-06-26 06:00] VITALS: BP 157/91; PULSE 91; RESP 20; TEMP 98; O2SAT 99
[2025-06-26 08:23] VITALS: BP 111/78; PULSE 99; RESP 18; TEMP 97.9; O2SAT 99
[2025-06-26] MEDS: FAMOTIDINE 20 MG TABLET PO SCH (08:57)
[2025-06-26] MEDS: FOLIC ACID/VIT B COMPLEX AND C TABLET PO SCH (08:57)
[2025-06-26] MEDS: TAMSULOSIN HCL 0.4 MG CAPSULE PO SCH (11:03)
[2025-06-26 12:44] LABS: PLATELET COUNT (AUTO) 251 K/uL (150-450); RED BLOOD CELL COUNT(AUTO) 4.99 MIL/uL (4.50-5.90); RED CELL DISTRIBUTION WIDTH 20.6 % (11.5-14.5); WHITE BLOOD COUNT (AUTO) 10.6 K/uL (4.5-11.0)
[2025-06-26 12:45] LABS: RBC MORPHOLOGY COMMENT ABNORMAL RBC MORPH
[2025-06-26 12:49] LABS: CALCIUM, TOTAL 9.1 mg/dL (8.8-10.5); CREATININE 4.09 mg/dL (0.60-1.30); GLOMERULAR FILTR. RATE CALC 18.0 mL/min (>60); GLUCOSE,RANDOM 92.0 mg/dL (70-110); SODIUM SERUM 140.0 mmol/L (136-145); UREA NITROGEN, BLOOD 55.0 mg/dL (7-18)
[2025-06-26] MEDS: DEXTROSE 5%-0.45% SODIUM CHL 1,000 ML IV SCH (13:50)
[2025-06-26 16:00] VITALS: BP 116/74; PULSE 89; RESP 18; TEMP 97.9; O2SAT 98
[2025-06-26 20:00] VITALS: BP 153/109; PULSE 98; RESP 18; TEMP 98.6; O2SAT 99
[2025-06-27 04:00] VITALS: BP 123/77; PULSE 89; RESP 18; TEMP 98.3; O2SAT 99
[2025-06-27 04:06] LABS: HEPATITIS C AB (EIA) Non Reactive (Non Reactive)
[2025-06-27 06:43] LABS: CALCIUM, TOTAL 8.7 mg/dL (8.8-10.5); CREATININE 3.71 mg/dL (0.60-1.30); GLOMERULAR FILTR. RATE CALC 20.0 mL/min (>60); GLUCOSE,RANDOM 109.0 mg/dL (70-110); SODIUM SERUM 139.0 mmol/L (136-145); UREA NITROGEN, BLOOD 47.0 mg/dL (7-18)
[2025-06-27 06:46] LABS: PHOSPHORUS 3.3 mg/dL (2.5-4.9)
[2025-06-27 08:12] VITALS: BP 137/101; PULSE 98; RESP 18; TEMP 97.7; O2SAT 100
[2025-06-27 15:12] VITALS: BP 148/104; PULSE 110; RESP 18; TEMP 98; O2SAT 100
[2025-06-27 18:06] VITALS: BP 148/99; RESP 18; O2SAT 100
[2025-06-28] MEDS: LORazepam 2 MG/ML VIAL IVP PRN (04:44)
[2025-06-28 07:43] VITALS: BP 154/108; PULSE 90; RESP 18; TEMP 98.2; O2SAT 99
[2025-06-28 15:40] VITALS: BP 150/102; PULSE 105; RESP 18; TEMP 98.5; O2SAT 97
[2025-06-28 17:54] VITALS: BP 146/66; RESP 18; O2SAT 99
[2025-06-28 20:00] VITALS: BP 136/96; PULSE 81; RESP 18; TEMP 98.1; O2SAT 99
[2025-06-29 04:00] VITALS: BP 176/106; PULSE 119; RESP 18; TEMP 98.1; O2SAT 100
[2025-06-29 05:00] VITALS: BP 155/106; PULSE 90; RESP 18; TEMP 98.1; O2SAT 100
[2025-06-29 06:00] VITALS: BP_SYST 140; BP_SYST 157; BP_DIAS 108; BP_DIAS 98; PULSE 94; RESP 18; TEMP 98.1; O2SAT 100
[2025-06-29 12:23] VITALS: BP 145/106; RESP 19
[2025-06-29] MEDS: DIVALPROEX SODIUM 500 MG DR TABLET PO SCH (12:29)
[2025-06-29 14:03] LABS: PLATELET COUNT (AUTO) 282 K/uL (150-450); RED BLOOD CELL COUNT(AUTO) 4.69 MIL/uL (4.50-5.90); RED CELL DISTRIBUTION WIDTH 20.5 % (11.5-14.5); WHITE BLOOD COUNT (AUTO) 9.0 K/uL (4.5-11.0)
[2025-06-29 14:09] LABS: CALCIUM, TOTAL 8.8 mg/dL (8.8-10.5); CREATININE 3.28 mg/dL (0.60-1.30); GLOMERULAR FILTR. RATE CALC 23.0 mL/min (>60); GLUCOSE,RANDOM 128.0 mg/dL (70-110); SODIUM SERUM 140.0 mmol/L (136-145); UREA NITROGEN, BLOOD 31.0 mg/dL (7-18)
[2025-06-29 14:13] LABS: PHOSPHORUS 3.3 mg/dL (2.5-4.9)
[2025-06-29 14:25] LABS: RBC MORPHOLOGY COMMENT ABNORMAL RBC MORPH
[2025-06-29 15:09] VITALS: BP 154/112; PULSE 108; RESP 19; TEMP 98; O2SAT 98
[2025-06-29 19:36] VITALS: BP 145/100; PULSE 93; RESP 19; TEMP 98.2; O2SAT 98
[2025-06-29] MEDS: LOSARTAN POTASSIUM 25 MG TABLET PO SCH (21:00)
[2025-06-30 07:50] VITALS: BP 133/99; PULSE 91; RESP 18; TEMP 98.1; O2SAT 99
== END 2025-06-30 15:20 | DRG 683 ==
LOC: EMS 11:44 → CANBEDREQ 16:41 → EDH 16:43 → 6S 06-26 01:24
PROVIDERS: ADMIT Internal Medicine; ATTEND Internal Medicine
PROC: GZ58ZZZ Individual Psychotherapy, Cognitive-Behavioral (ICD-10-PCS; principal; 2025-06-26)
PROC: GZ56ZZZ Individual Psychotherapy, Supportive (ICD-10-PCS; 2025-06-26)
PROC: GZ52ZZZ Individual Psychotherapy, Cognitive (ICD-10-PCS; 2025-06-27)
DX: N17.9 Acute kidney failure, unspecified (principal); I12.0 Hypertensive chronic kidney disease with stage 5 chronic kidney disease or end stage renal disease; D63.1 Anemia in chronic kidney disease; Z20.822 Contact with and (suspected) exposure to COVID-19; N11.9 Chronic tubulo-interstitial nephritis, unspecified; R33.9 Retention of urine, unspecified; F17.210 Nicotine dependence, cigarettes, uncomplicated; K21.9 Gastro-esophageal reflux disease without esophagitis; N18.5 Chronic kidney disease, stage 5; F25.0 Schizoaffective disorder, bipolar type; Z79.899 Other long term (current) drug therapy; Z78.1 Physical restraint status
CPT/HCPCS: 71045; 76770; 80048; 80307; 81001; 83735; 84100; 85025; 86803; 87340; 96372; 99285; G0378; G0480; J1200; J1630; J2060; J3230; 36415-L1; 36415-TC